=== PATIENT | male | born 1950 | race Caucasian/White ===

== ENCOUNTER 2023-06-18 07:02 | Outpatient (CLI) | payer OTHER, SELFPAY ==
--- NOTE | 2023-06-18 07:15 | MR_ITS ---
[facility] [address] [facility] [address] [address] [address] Phone:?[phone] Fax:?[phone] Referring Physician Information: Awais Murillo M.D. [id number] [facility] [address] Phone:?[phone] Fax:?[phone] Patient:Chrissy Coleman D.O.B:?1950 Sex:?Male Phone:?[phone] [facility] MRN:?[id number] Exam Date:?06/18/2023 EXAM: MRI of the RIGHT SHOULDER, without contrast CLINICAL INFORMATION: Male, 72 years old, with right shoulder pain. INDICATION: Evaluate for rotator cuff tear. PRIOR SURGERY: None reported. PLAIN FILMS: Shoulder radiographs dated 06/12/2023. COMPARISONS: Right shoulder MRI dated 02/08/2020. TECHNICAL INFORMATION: Using a 1.5T MR scanner and a localizing surface coil: coronal obliques: PD, T2FS sagittal obliques: T2, PDFS axials: PD, PDFS SEDATION: None CONTRAST: None FINDINGS: Bones: Proximal humerus: No fracture or marrow edema/pathology. No humeral Hill-Sachs or reverse Hill-Sachs lesion/impaction or contusion. Glenoid: No fracture or marrow edema/pathology. No osseous Bankart lesion. Rotator cuff and muscles/tendons: Supraspinatus: Full-width, full-thickness tear of supraspinatus, tendon retraction to the level the glenoid and grade 3 muscle atrophy. Infraspinatus: Full-width, full-thickness tear of infraspinatus, tendon retraction to level the glenoid and grade 4 muscle atrophy. Teres minor: No tendinopathy, tear or atrophy. Subscapularis: Marked tendinopathy of the superior distal subscapularis, with partial-thickness interstitial tearing at the superior leading edge of the tendon over an area measuring 1.5 x 1.3 cm and involving approximately two thirds of the tendon thickness (sagittal T2 series 8 image 12 and axial PD series 3 image 17). No tendon retraction muscle atrophy. Deltoid: No strain or atrophy. Coracoacromial arch: Acromion morphology: The acromion has type II morphology. No discrete subacromial osseous spur or os acromiale. Acromiohumeral space: The acromiohumeral space is markedly narrowed. Coracohumeral space: The coracohumeral space is within normal limits. Acromioclavicular joint: Joint: Moderate-marked AC joint arthropathy with 5 mm of infraspinatus, which effaces the underlying supraspinatus. Ligaments: Coracoclavicular ligaments are intact. Bursae: Subacromial-subdeltoid: Moderate subacromial-subdeltoid bursal fluid, which reflects accumulation from the full-thickness rotator cuff tear. Subcoracoid: No convincing subcoracoid bursal thickening/bursitis. Biceps tendon: The long head of the biceps tendon is medially displaced at the lesser tuberosity. Marked tendinopathy and ill-defined intermediate grade partial tearing of the intra-articular biceps long head tendon (sagittal PD series 7 images 11-18). Glenohumeral joint: Effusion/cyst: Marked glenohumeral joint effusion. Articular cartilage: Humeral head: Mild generalized thinning of the humeral head articular cartilage, with mild inferomedial marginal osteophytosis. Glenoid: Mild thinning of the glenoid articular cartilage, mild/moderate posterior and mild anterior marginal osteophytosis. Loose bodies: No discrete intra-articular body within the joint. Labrum:?Circumferential degeneration and poorly defined fraying/tearing of the labrum. Inferior glenohumeral ligament/axillary pouch:?Intact. The axillary pouch is normal in thickness and signal. No evidence of adhesive capsulitis or capsular injury. IMPRESSION: 1. Full-width, full-thickness tears of supraspinatus & infraspinatus, with tendon retraction to level the glenoid and grade 3 or 4 muscle atrophy. These findings have progressed since the prior study dated 02/08/2020. 2. Findings in keeping with a biceps ginny injury: -Marked subscapularis tendinopathy with a 1.5 x 1.3 cm area of nytsibwwtjyd-qucn-sbezi interstitial tearing at the superior leading edge of the tendon. -Medial displacement of the biceps long head tendon at the lesser tuberosity. -Marked tendinopathy and ill-defined intermediate grade partial tearing of the intra-articular biceps long head tendon. -This has progressed since the prior study. 3. Mild osteoarthritis of the glenohumeral joint with a large joint effusion that extends into the subacromial-subdeltoid bursa. 4. Marked narrowing of the acromiohumeral space. Additionally, there is moderate-marked AC joint arthropathy with inferior aspect is that effaces the underlying supraspinatus. 5. Circumferential degeneration and poorly defined fraying/tearing of the labrum. BC Electronically signed on 06/18/2023 1:15:00 PM by Johnny Clayton M.D.
== END 2023-06-18 07:03 | disposition home or self-care (01) ==
LOC: MRI 07:04
PROVIDERS: PCP Family Medicine; Visit Provider Orthopaedic Surgery
DX: M25.511 Pain in right shoulder (principal); M75.101 Unspecified rotator cuff tear or rupture of right shoulder, not specified as traumatic; M19.011 Primary osteoarthritis, right shoulder; M25.411 Effusion, right shoulder
CPT/HCPCS: 73221

== ENCOUNTER 2023-07-03 09:04 | Outpatient (CLI) | payer MEDICARE, SELFPAY ==
--- NOTE | 2023-07-03 09:15 | MR_ITS ---
Patient: FANTASMA CHAN Facility:?[facility] Patient ID:?[id number] Site Patient ID:?[id number]. Site :?1950 Study:?MRI-Spine Cervical W/O-07/03/2023 10:20:13 AM Ordering Physician:BHAVIK MA Final Report: INDICATION: Radiculopathy. TECHNIQUE: Multiplanar multisequence noncontrast MR images of the cervical spine. COMPARISON: Cervical spine radiographs 06/26/2023. FINDINGS: Mild rightward cervical curvature. The cervical lordosis is maintained. Vertebral heights preserved. No acute fracture. No T1 hypointense lesions. The cervical cord is normal in signal intensity. C2-3: Shallow posterior disc osteophyte complex. Mild facet arthropathy. No spinal canal or neural foraminal narrowing. C3-4: Left eccentric disc osteophyte complex. Left greater than right uncinate spurring. Moderate left and mild right facet arthropathy. No spinal canal narrowing. Moderate bilateral neural foraminal narrowing. C4-5: Mild disc height loss. Shallow posterior disc osteophyte complex. Thickening ligamentum flavum. Bilateral uncinate spurring. Wddc-cy-jzbtyjsu facet arthropathy. Mild spinal canal narrowing. Moderate bilateral neural foraminal narrowing. C5-6: Advanced disc height loss. Shallow posterior disc osteophyte complex. Bilateral uncinate spurring, greater on the right. Hhdp-ji-atkbznvv facet arthropathy. Thickening ligamentum flavum. Mild spinal canal narrowing. Moderately severe right and rqvf-ik-xjmowivi left neural foraminal narrowing. C6-7: Moderately advanced disc height loss. Shallow posterior disc osteophyte complex. Bilateral uncinate spurring. Mild facet arthropathy. No spinal canal narrowing. Mild bilateral neural foraminal narrowing. C7-T1: Grade 1 anterolisthesis. Advanced bilateral facet arthropathy. No spinal canal narrowing. Severe left and mild right neural foraminal narrowing. IMPRESSION: 1. Multilevel cervical spondylosis without spinal canal stenosis. 2. At C3-4, moderate bilateral neural foraminal narrowing. 3. At C4-5, moderate bilateral neural foraminal narrowing 4. At C5-6, moderately severe right neural foraminal stenosis. 5. At C7-T1, severe left neural foraminal stenosis. Dictated by Bin Palacios MD @ 07/03/2023 8:44:00 PM Signed by:?Bin Palacios MD @07/03/2023 8:44:00 PM (Electronic Signature)
== END 2023-07-03 09:05 | disposition home or self-care (01) ==
PROVIDERS: PCP Family Medicine; Visit Provider Orthopaedic Surgery
DX: M54.12 Radiculopathy, cervical region (principal); M50.21 Other cervical disc displacement, high cervical region; M50.222 Other cervical disc displacement at C5-C6 level; M48.03 Spinal stenosis, cervicothoracic region
CPT/HCPCS: 72141

== ENCOUNTER 2023-12-20 13:55 | Emergency (ER) | payer MEDICARE, SELFPAY ==
[2023-12-20 13:58] VITALS: BP 127/65; PULSE 77; RESP 16; TEMP 37.1; O2SAT 95; BMI 37.3
--- NOTE | 2023-12-20 14:32 | ED.LOWEXIN ---
HPI - Extremity Injury (Lower) General Chief Complaint: Extremity Pain/Injury, Lower Stated Complaint: R leg cellulitis Time Seen by Provider: 12/20/23 14:09 History of Present Illness HPI Narrative: Patient is a 73-year-old gentleman who was diagnosed with mild cellulitis on the right leg yesterday at the clinic at [facility]. He was given a g Rocephin IM and started on Keflex. They did draw a nice line around his mid calf and patient is been compliant with his medication. Patient is concerned that he should be feeling better by now. He agrees that the area of induration has improved Um and is actually more distal to the area the circled. He has some chronic dermatitis and mild skin breakdown which has not changed. He has had no fevers no chills no night sweats no cough no shortness of breath. Patient has had complex skin infections in the past requiring IV vancomycin. 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 Again Um the does appear the patient is any worse infected he seems like he is somewhat better than yesterday when he was seen in clinic. Related Data Home Medications ?Medication ?Instructions ?Recorded ?Confirmed ascorbic acid (vitamin C) 1,000 mg 1 g PO QDAY 06/12/23 12/20/23 tablet (Vitamin C) aspirin 81 mg tablet,delayed 81 mg PO QDAY 06/12/23 12/20/23 release atorvastatin 40 mg tablet 40 mg PO QDAY 06/12/23 12/20/23 cholecalciferol (vitamin D3) 25 25 mcg PO QDAY 06/12/23 12/20/23 mcg (1,000 unit) capsule (Vitamin D3) clopidogrel 75 mg tablet (Plavix) 75 mg PO QDAY 06/12/23 12/20/23 lisinopril 2.5 mg tablet 2.5 mg PO QDAY 06/12/23 12/20/23 nitroglycerin 0.4 mg sublingual mg sublingual 06/12/23 07/08/23 tablet acetaminophen 650 mg/20.3 mL oral 650 mg PO Q6H PRN 07/08/23 07/08/23 solution aspirin 325 mg tablet 325 mg PO QDAY 07/08/23 07/08/23 atorvastatin 10 mg tablet mg PO .Bedtime 07/08/23 07/08/23 lisinopril 5 mg tablet mg PO DAILY 07/08/23 07/08/23 metoprolol tartrate 25 mg tablet mg PO .Bedtime 07/08/23 07/08/23 cephalexin 500 mg capsule 500 mg PO QID 12/20/23 12/20/23 Allergies Allergy/AdvReac Type Severity Reaction Status Date / Time No Known Drug Allergies Allergy Verified 12/20/23 14:03 Review of Systems Status of ROS: Reports: 10 or more systems reviewed and unremarkable except as noted in History and below [facility] Medical History Pain in hand (08/28/12) ?M79.643 - Pain in unspecified hand (ICD-10) Laceration of right thumb ?S61.011A - Laceration without foreign body of right thumb without damage to nail, initial encounter (ICD-10) Cellulitis ?L03.90 - Cellulitis, unspecified (ICD-10) Skin cancer ?C44.90 - Unspecified malignant neoplasm of skin, unspecified (ICD-10) CAD (coronary artery disease) ?I25.10 - Atherosclerotic heart disease of [place] coronary artery without angina pectoris (ICD-10) Sleep apnea ?G47.30 - Sleep apnea, unspecified (ICD-10) Cellulitis of right leg ?L03.115 - Cellulitis of right lower limb (ICD-10) Surgical History History of cataract extraction ?Z98.49 - Cataract extraction status, unspecified eye (ICD-10) History of heart artery stent ?Z95.5 - Presence of coronary angioplasty implant and graft (ICD-10) History of open heart surgery ?Z98.890 - Other specified postprocedural states (ICD-10) Family History Mother Diabetes Father Heart disease High blood pressure Social History Narrative: chewing tobacco user Smoking Status: Former smoker What tobacco products do you use: cigarettes Smoking quit date/years: >15 years ago Do you use any of these nicotine containing products: Smokeless Tobacco Second hand tobacco smoke exposure: No How often do you have a drink containing alcohol: never AUDIT-C Alcohol total score: 0 Non-prescribed substance use: denies use Are you now , , , , never or living with a partner: Social isolation score (0-1 are the most socially isolated patients): 1 Exam Narrative: Exam Narrative: EXAM GENERAL: Patient appears comfortable and well. Overweight. EYES: No scleral icterus. LYMPH: No supraclavicular or cervical lymphadenopathy. SKIN: Very mild redness noted distal to the circumferential marking on the right calf. He does have some superficial skin breakdown which he says is chronic. The redness is not terribly bright or swollen. Clearly there has been some recession of the erythema compared to previous exam as noted with the marking. EXT: No dependent lower extremity pedal edema. HEART: Regular rate and rhythm with no murmurs, rubs, or gallops. LUNGS: Clear to auscultation bilaterally with no crackles or wheezes. ABD: Soft, non tender, non distended. PSYCH: Good eye contact, speech is not pressured. Const: Vital Signs, click to edit/add: Vital Signs - 24 hr 12/20/23 13:58 Temperature 98.8 F Pulse Rate [Left P ulse Oximeter] 77 Respiratory Rate 16 Blood Pressure [Ri ght Upper Arm] 127/65 Pulse Oximetry 95 Oxygen Delivery Me thod Room Air Course Vital Signs Vital signs: Initial Vital Signs Temperature 98.8 F 12/20/23 13:58 Temperature Source Temporal Artery Scan 12/20/23 13:58 Pulse Rate 77 12/20/23 13:58 Respiratory Rate 16 12/20/23 13:58 Blood Pressure 127/65 12/20/23 13:58 Blood Pressure Mean 85 12/20/23 13:58 Blood Pressure Position Sitting 12/20/23 13:58 Pulse Oximetry 95 12/20/23 13:58 Oxygen Delivery Method Room Air 12/20/23 13:58 Vital Signs Temperature 98.8 F 12/20/23 13:58 Pulse Rate 77 12/20/23 13:58 Respiratory Rate 16 12/20/23 13:58 Blood Pressure 127/65 12/20/23 13:58 Pulse Oximetry 95 12/20/23 13:58 Oxygen Delivery Method Room Air 09/07/24 13:58 Temperature 98.8 F 12/20/23 13:58 Pulse Rate 77 12/20/23 13:58 Respiratory Rate 16 12/20/23 13:58 Blood Pressure 127/65 12/20/23 13:58 Pulse Oximetry 95 12/20/23 13:58 Oxygen Delivery Method Room Air 12/20/23 13:58 MDM - Extremity Injury (Lower) MDM Narrative Medical decision making narrative: I did have a nice discussion with patient is . On my exam patient is nontoxic appearing and has normal vital signs. His exam other than the obesity is normal with exception of mild erythema with a signs of chronic venous insufficiency the right lower extremity. On based on the line drawn in the office it does appear that the erythema is receding slightly. He has again no signs of toxicity and I do feel like he is improving. I do not believe he needs laboratory workup. He is asking about being hospitalized. I do not think that that is indicated here even though he has somewhat complex history as he does appear to be getting better and is not febrile. I did has a firm eyes given another g of IM Rocephin and asked him to continue his Keflex. Continue leg elevation and his other home medications will follow-up with his primary physician this coming week. Certainly if he develops any signs of systemic infection or worsening erythema would encourage him to come back. I also see no evidence of DVT as there is no thigh swelling or tenderness. Discharge Plan Discharge Clinical Impression: Cellulitis Patient Disposition: Home, Self-Care Condition: Stable Instructions: Cellulitis (ED) Additional Instructions: Continue current care Leg elevation while at rest Follow-up with your doctor next week as needed. Activity Level: No Restrictions Discharge Diet: Regular Prescriptions: No Action metoprolol tartrate 25 mg tablet PO .Bedtime lisinopril 5 mg tablet PO DAILY atorvastatin 10 mg tablet PO .Bedtime aspirin 325 mg tablet 325 mg PO QDAY acetaminophen 650 mg/20.3 mL solution 650 mg PO Q6H PRN nitroglycerin 0.4 mg tablet, sublingual sublingual ascorbic acid (vitamin C) [Vitamin C] 1,000 mg tablet 1 g PO QDAY aspirin 81 mg tablet,delayed release (DR/EC) 81 mg PO QDAY cholecalciferol (vitamin D3) [Vitamin D3] 25 mcg (1,000 unit) capsule 25 mcg PO QDAY lisinopril 2.5 mg tablet 2.5 mg PO QDAY atorvastatin 40 mg tablet 40 mg PO QDAY clopidogrel [Plavix] 75 mg tablet 75 mg PO QDAY cephalexin 500 mg capsule 500 mg PO QID Follow Up/Referrals: Erica Madison MD [Primary Care Provider] - Stand Alone Forms: [email or web address] Instructions
[2023-12-20] MEDS: LIDOCAINE 1% 5 ml (pf) 5 ML VIAL 2.1 ML IM (14:45)
[2023-12-20] MEDS: cefTRIAXone 1 GM VIAL IM (14:45)
== END 2023-12-20 14:50 | disposition home or self-care (01) ==
LOC: ED 14:40
PROVIDERS: Emergency Provider Internal Medicine; PCP Family Medicine
DX: L03.115 Cellulitis of right lower limb (principal)
CPT/HCPCS: 96372; 99283; J0696

== ENCOUNTER 2023-12-21 06:56 | Emergency (ER) | payer MEDICARE, SELFPAY ==
[2023-12-21 07:00] VITALS: BP 138/89; PULSE 74; RESP 20; TEMP 36.5; O2SAT 95; BMI 37.3
--- NOTE | 2023-12-21 07:36 | ED_ITS ---
HPI - General Adult General Chief complaint: Skin/Abscess/Foreign Body <Lisset Bernal MD - Last Filed: 12/23/23 23:57> Stated complaint: cellulitis R lower calf <Lisset Bernal MD - Last Filed: 12/23/23 23:57> Time Seen by Provider: 12/21/23 07:21 <Lisset Bernal MD - Last Filed: 12/23/23 23:57> Source: patient and family <Lisset Bernal MD - Last Filed: 12/23/23 23:57> Mode of arrival: ambulatory <Lisset Bernal MD - Last Filed: 12/23/23 23:57> Limitations: no limitations <Lisset Bernal MD - Last Filed: 12/23/23 23:57> History of Present Illness HPI narrative: 73-year-old male presents with his to the ED for evaluation of possibly worsening cellulitis. Last evaluated yesterday afternoon, about 18 hours ago. Patient awoke with symptoms 3 days ago, was evaluated in primary care clinic 2 days ago, started antibiotics less than 48 hours ago. Was given a shot of Rocephin in the clinic can and started on Keflex, reports good compliance. He came to the ED fairly 24 hours after starting antibiotics yesterday with concerned that things were not improving as he thought it should be. There are no fevers. Patient reports increased pain this morning and says that the cellulitis looks like it is worsening. It has spread less than a cm above the marked line in only 1 small area. Is having pain in the ankle and a little bit of tingling in the knee area. No sweats or chills, no shortness of breath or cardiac changes. No nausea or vomiting. No weakness. Slept poorly due to pain but did not try any treatment to help with the pain. Concern with worsening infection. No compression. No history of DVT. Does take Plavix and aspirin for cardiac issues. Has a history of ?circulation issues? in the leg but no prior history of stent. ED note from yesterday reviewed, no labs performed as the exam documents clinically very mild cellulitis. Past medical history notable for obesity, hypertension, coronary artery disease. Home meds are lisinopril, Plavix, aspirin and recent start of Keflex. As well as ongoing a tore the statin. Nonsmoker. No trauma or injury. ROS is notable for the extremities symptoms only, otherwise denies times 12 systems. <Lisset Bernal MD - Last Filed: 12/23/23 23:57> Related Data Home medications: Home Medications ?Medication ?Instructions ?Recorded ?Confirmed ascorbic acid (vitamin C) 1,000 mg 1 g PO QDAY 06/12/23 12/20/23 tablet (Vitamin C) aspirin 81 mg tablet,delayed 81 mg PO QDAY 06/12/23 12/20/23 release atorvastatin 40 mg tablet 40 mg PO QDAY 06/12/23 12/20/23 cholecalciferol (vitamin D3) 25 25 mcg PO QDAY 06/12/23 12/20/23 mcg (1,000 unit) capsule (Vitamin D3) clopidogrel 75 mg tablet (Plavix) 75 mg PO QDAY 06/12/23 12/20/23 lisinopril 2.5 mg tablet 2.5 mg PO QDAY 06/12/23 12/20/23 nitroglycerin 0.4 mg sublingual mg sublingual 06/12/23 07/08/23 tablet acetaminophen 650 mg/20.3 mL oral 650 mg PO Q6H PRN 07/08/23 07/08/23 solution aspirin 325 mg tablet 325 mg PO QDAY 07/08/23 07/08/23 atorvastatin 10 mg tablet mg PO .Bedtime 07/08/23 07/08/23 lisinopril 5 mg tablet mg PO DAILY 07/08/23 07/08/23 metoprolol tartrate 25 mg tablet mg PO .Bedtime 07/08/23 07/08/23 cephalexin 500 mg capsule 500 mg PO QID 12/20/23 12/20/23 Previous Rx's ?Medication ?Instructions ?Recorded doxycycline monohydrate 100 mg 100 mg PO BID #14 tabs 12/21/23 tablet <Lisset Bernal MD - Last Filed: 12/23/23 23:57> Allergies/adverse reactions: Allergies Allergy/AdvReac Type Severity Reaction Status Date / Time No Known Drug Allergies Allergy Verified 12/20/23 14:03 <Lisset Bernal MD - Last Filed: 12/23/23 23:57> [facility] Medical History: Medical History Pain in hand (08/28/12) ?M79.643 - Pain in unspecified hand (ICD-10) Laceration of right thumb ?S61.011A - Laceration without foreign body of right thumb without damage to nail, initial encounter (ICD-10) Cellulitis ?L03.90 - Cellulitis, unspecified (ICD-10) Skin cancer ?C44.90 - Unspecified malignant neoplasm of skin, unspecified (ICD-10) CAD (coronary artery disease) ?I25.10 - Atherosclerotic heart disease of [place] coronary artery without angina pectoris (ICD-10) Sleep apnea ?G47.30 - Sleep apnea, unspecified (ICD-10) Cellulitis of right leg ?L03.115 - Cellulitis of right lower limb (ICD-10) <Lisset Bernal MD - Last Filed: 12/23/23 23:57> Surgical History: Surgical History History of cataract extraction ?Z98.49 - Cataract extraction status, unspecified eye (ICD-10) History of heart artery stent ?Z95.5 - Presence of coronary angioplasty implant and graft (ICD-10) History of open heart surgery ?Z98.890 - Other specified postprocedural states (ICD-10) <Lisset Bernal MD - Last Filed: 12/23/23 23:57> Family History: Family History Mother Diabetes Father Heart disease High blood pressure <Lisset Bernal MD - Last Filed: 12/23/23 23:57> Social History: Social History Narrative: chewing tobacco user Smoking Status: Former smoker What tobacco products do you use: cigarettes Smoking quit date/years: >15 years ago Do you use any of these nicotine containing products: Smokeless Tobacco Second hand tobacco smoke exposure: No How often do you have a drink containing alcohol: never AUDIT-C Alcohol total score: 0 Non-prescribed substance use: denies use Are you now , , , , never or living with a partner: Social isolation score (0-1 are the most socially isolated patients): 1 service: Yes <Lisset Bernal MD - Last Filed: 12/23/23 23:57> Exam Const: Vital Signs, click to edit/add: Vital Signs - 24 hr 12/21/23 07:00 12/21/23 09:00 Temperature 97.7 F 97.6 F Pulse Rate [Pulse Oximeter] 74 64 Respiratory Rate 20 18 Blood Pressure [Ri ght Upper Arm] 138/89 138/89 Pulse Oximetry 95 97 Oxygen Delivery Me thod Room Air Room Air <Lisset Bernal MD - Last Filed: 12/23/23 23:57> Vital Signs, click to edit/add: Vital Signs - 24 hr 12/21/23 07:00 12/21/23 09:00 Temperature 97.7 F 97.6 F Pulse Rate [Pulse Oximeter] 74 64 Respiratory Rate 20 18 Blood Pressure [Ri ght Upper Arm] 138/89 138/89 Pulse Oximetry 95 97 Oxygen Delivery Me thod Room Air Room Air <Cristina Hartman MD - Last Filed: 12/21/23 10:09> Documenting provider has reviewed patient's vital signs: yes <Lisset Bernal MD - Last Filed: 12/23/23 23:57> Common normals: no apparent distress and alert <Lisset Bernal MD - Last Filed: 12/23/23 23:57> Other: Anxious, but I know him well at baseline and this is fairly typical for him. Answers questions appropriately, nontoxic. <Lisset Bernal MD - Last Filed: 12/23/23 23:57> HENMT: Common normals: normocephalic <Lisset Bernal MD - Last Filed: 12/23/23 23:57> Head and scalp: normocephalic <Lisset Bernal MD - Last Filed: 12/23/23 23:57> Face and sinus: normal facial exam <Lisset Bernal MD - Last Filed: 12/23/23 23:57> Mouth: oral and palatal mucosa normal <MD Nga Thibodeaux Last Filed: 12/23/23 23:57> Throat: posterior oropharynx normal <MD Nga Thibodeaux Last Filed: 12/23/23 23:57> Eye: Common normals: conjunctivae normal <MD Nga Thibodeaux Last Filed: 12/23/23 23:57> General eye: normal appearance of both eyes <MD Nga Thibodeaux Last Filed: 12/23/23 23:57> Conjunctiva: conjunctiva(e) normal <MD Nga Thibodeaux Last Filed: 12/23/23 23:57> Neck & C-Spine: General: normal visual inspection <MD Nga Thibodeaux Last Filed: 12/23/23 23:57> Resp: Common normals: normal respiratory effort, no use of accessory muscles and clear to auscultation bilaterally <MD Nga Thibodeaux Last Filed: 12/23/23 23:57> Effort & inspection: able to speak in complete sentences <MD Nga Thibodeaux Last Filed: 12/23/23 23:57> Auscultation: clear to auscultation bilaterally <MD Nga Thibodeaux Last Filed: 12/23/23 23:57> Cardio: Common normals: regular rate, regular rhythm, S1 normal heart sound, S2 normal heart sound and no murmurs <MD Nga Thibodeaux Last Filed: 12/23/23 23:57> Rate: regular rate <MD Nga Thibodeaux Last Filed: 12/23/23 23:57> Rhythm: regular rhythm <MD Nga Thibodeaux Last Filed: 12/23/23 23:57> Heart sounds: S1 normal and S2 normal <MD Nga Thibodeaux Last Filed: 12/23/23 23:57> GI: Common normals: Normal to inspection, nondistended, normoactive bowel sounds present and soft to palpation <MD Nga Thibodeaux Last Filed: 12/23/23 23:57> Palpation: soft <Lisset Bernal MD - Last Filed: 12/23/23 23:57> Extremity: Other: Right knee with well-healed total knee arthroplasty scar, no redness or effusion in the knee. The right ankle has no evidence of effusion. Mild tenderness to palpation with soft tissue swelling only. The marked area cellulitis appears 99% similar to current area of redness with the exception of a 1 cm creeping anteriorly only. This is not worse posteriorly or inferiorly. The entire foot is not affected, really just the [place] area. There are no palpable cords. Staining of the skin consistent with chronic venous stasis. I really do not appreciate a dramatic temperature change between the right and the left and the redness is very mild. He does have 2+ dorsalis pedis pulses and capillary refill is less than 2 seconds in the right foot. The left side has some mild chronic venous stasis skin changes but no ulcerations, redness, warmth or tenderness. <Lisset Bernal MD - Last Filed: 12/23/23 23:57> Neuro: Sensorium/orientation: alert <Lisset Bernal MD - Last Filed: 12/23/23 23:57> Speech: speech normal <Lisset Bernal MD - Last Filed: 12/23/23 23:57> Psych: Appearance: grossly normal <Lisset Bernal MD - Last Filed: 12/23/23 23:57> Activity/motor behavior: appropriate eye contact <Lisset Bernal MD - L ast Filed: 12/23/23 23:57> Skin: Narrative: Other than the mild redness to the right lower leg, no open sores, ulcerations or signs of trauma. <Lisset Bernal MD - Last Filed: 12/23/23 23:57> Course Course ED Course: 73-year-old male with a history of peripheral vascular disease and chronic venous stasis presenting with cellulitis of the right lower extremity that does sound fairly clinically stable but patient with increased pain and concern with worsening infection. He is afebrile and not exhibiting any signs of sepsis at this time. Would recommend that we get some more data with lab work. I have recommended a CBC, basic metabolic panel, CRP, procalcitonin and a uric acid level to see if there is another cause for his joint pain. I am going to hold off on any antibiotics at this time and I do not necessarily think that he needs hospitalization. I did try to reassure the family that cellulitis does take longer to improve then I think they were initially led to believe. I do still think this is falling in the realm of normal healing at this time. Will await lab studies and use this for plan of care. <Lisset Bernal MD - Last Filed: 12/23/23 23:57> Reevaluation(s) Time of Reevaluation #1: 10:04 <Cristina Hartman MD - Last Filed: 12/21/23 10:09> Reevaluation #1: This 73-year-old male is seen in follow-up with his labs. Unfortunately, there was an error on the machine in the C reactive protein did take some extra time to come back. We have reviewed that his labs certainly look reassuring. His inflammatory markers are normal. White count is a little low, do not have anything to compare with it at this time. He has felt chilled while being here, tells me had some chills overnight. We did recheck his temperature, there is no documented temperature. Did visualize is leg, the erythema is just slightly out of the area. There is 1 scab along his anterior lower medial tibia area that could have been source of infection. He is concerned as there is a knee replacement on this side. He has no involvement of the knee joint on examination at this time, no effusion. Erythema is not extending up to that level. He has no history of MRSA. He is quite concerned as is his . Given his concerns, his sense of feeling chilled, will offer him additional oral antibiotics. Have discussed with him that he does not meet criteria for ho spitalization at this time. We discussed that it is imperative that he elevate this leg. He also brought up that he has poor circulation in this lower extremity. Reviewed that I do understand that but that even makes this more important for him to elevate. He may have a prolonged course, may take him even longer for cellulitis to resolve. In his situation, I would anticipate it maybe 3-5 days for improvement but he needs to watch for worsening. <Cristina Powell MD - Last Filed: 12/21/23 10:09> Vital Signs Vital signs: Initial Vital Signs Temperature 97.7 F 12/21/23 07:00 Temperature Source Temporal Artery Scan 12/21/23 07:00 Pulse Rate 74 12/21/23 07:00 Pulse Rhythm Regular 12/21/23 07:00 Respiratory Rate 20 12/21/23 07:00 Blood Pressure 138/89 12/21/23 07:00 Blood Pressure Mean 105 12/21/23 07:00 Blood Pressure Position Sitting 12/21/23 07:00 Pulse Oximetry 95 12/21/23 07:00 Oxygen Delivery Method Room Air 12/21/23 07:00 Vital Signs Temperature 97.7 F 12/21/23 07:00 Pulse Rate 74 12/21/23 07:00 Respiratory Rate 20 12/21/23 07:00 Blood Pressure 138/89 12/21/23 07:00 Pulse Oximetry 95 12/21/23 07:00 Oxygen Delivery Method Room Air 12/21/23 07:00 Temperature 97.6 F 12/21/23 09:00 Pulse Rate 64 12/21/23 09:00 Respiratory Rate 18 12/21/23 09:00 Blood Pressure 138/89 12/21/23 09:00 Pulse Oximetry 97 12/21/23 09:00 Oxygen Delivery Method Room Air 12/21/23 09:00 <Lisset Bernal MD - Last Filed: 12/23/23 23:57> Initial Vital Signs Temperature 97.7 F 12/21/23 07:00 Temperature Source Temporal Artery Scan 12/21/23 07:00 Pulse Rate 74 12/21/23 07:00 Pulse Rhythm Regular 12/21/23 07:00 Respiratory Rate 20 12/21/23 07:00 Blood Pressure 138/89 12/21/23 07:00 Blood Pressure Mean 105 12/21/23 07:00 Blood Pressure Position Sitting 12/21/23 07:00 Pulse Oximetry 95 12/21/23 07:00 Oxygen Delivery Method Room Air 12/21/23 07:00 Vital Signs Temperature 97.7 F 12/21/23 07:00 Pulse Rate 74 12/21/23 07:00 Respiratory Rate 20 12/21/23 07:00 Blood Pressure 138/89 12/21/23 07:00 Pulse Oximetry 95 12/21/23 07:00 Oxygen Delivery Method Room Air 12/21/23 07:00 Temperature 97.6 F 12/21/23 09:00 Pulse Rate 64 12/21/23 09:00 Respiratory Rate 18 12/21/23 09:00 Blood Pressure 138/89 12/21/23 09:00 Pulse Oximetry 97 12/21/23 09:00 Oxygen Delivery Method Room Air 12/21/23 09:00 <Cristina Hartman MD - Last Filed: 12/21/23 10:09> Medical Decision Making Lab Data Lab results reviewed: Yes I reviewed the patient's lab results <Cristina Hartman MD - Last Filed: 12/21/23 10:09> Labs: Lab Results 12/21/23 12/21/23 Range/Units 07:58 07:58 WBC 3.72 L (4.50-11.00) K/uL RBC 4.58 (4.30-5.90) m/uL Hgb 14.8 (13.5-17.5) gm/dL Hct 44.9 (37.0-53.0) % MCV 98 (80-100) fL MCH 32 (26-34) pg MCHC 33 (32-36) gm/dL RDW Coeff of Mil 13.1 (11.5-15.5) % Plt Count 129 L (140-440) K/uL Neut % (Auto) 63.8 (42.0-72.0) % Lymph % (Auto) 20.4 (20-44) % [place] % (Auto) 13.4 H (0.0-11.0) % Eos % (Auto) 1.9 (0.0-7.0) % Baso % (Auto) 0.5 (0.0-3.0) % Neut # (Auto) 2.40 (1.7-7.0) K/uL Lymph # (Auto) 0.80 L (0.90-2.90) K/uL [place] # (Auto) 0.50 (0.00-0.90) K/UL Eos # (Auto) 0.10 (0.00-0.50) K/uL Baso # (Auto) 0.00 (0.00-0.30) K/uL Abs Immat Gran (auto) 0.00 (0.00-0.30) K/uL Imm/Tot Granulo (auto) 0.0 % Sodium 133 L (135-149) mmol/L Potassium 4.0 (3.6-5.1) mmol/L Chloride 104 (96-114) mmol/L Carbon Dioxide 20 (20-32) mmol/L Anion Gap 9 (7-15) mEq/L BUN 12 (7-30) mg/dL Creatinine 0.6 (0.5-1.5) mg/dL Estimated Creat Clear 70.06 Estimated GFR 101 ml/min Glucose 109 (60-115) mg/dL Uric Acid 4.2 (2.2-8.4) mg/dL Calcium 8.9 (8.4-10.6) mg/dL C-Reactive Protein Cancelled < 0.5 L Procalcitonin 0.09 (<0.50) ng/mL <Lisset Bernal MD - Last Filed: 12/23/23 23:57> Lab Results 12/21/23 12/21/23 Range/Units 07:58 07:58 WBC 3.72 L (4.50-11.00) K/uL RBC 4.58 (4.30-5.90) m/uL Hgb 14.8 (13.5-17.5) gm/dL Hct 44.9 (37.0-53.0) % MCV 98 (80-100) fL MCH 32 (26-34) pg MCHC 33 (32-36) gm/dL RDW Coeff of Mil 13.1 (11.5-15.5) % Plt Count 129 L (140-440) K/uL Neut % (Auto) 63.8 (42.0-72.0) % Lymph % (Auto) 20.4 (20-44) % [place] % (Auto) 13.4 H (0.0-11.0) % Eos % (Auto) 1.9 (0.0-7.0) % Baso % (Auto) 0.5 (0.0-3.0) % Neut # (Auto) 2.40 (1.7-7.0) K/uL Lymph # (Auto) 0.80 L (0.90-2.90) K/uL [place] # (Auto) 0.50 (0.00-0.90) K/UL Eos # (Auto) 0.10 (0.00-0.50) K/uL Baso # (Auto) 0.00 (0.00-0.30) K/uL Abs Immat Gran (auto) 0.00 (0.00-0.30) K/uL Imm/Tot Granulo (auto) 0.0 % Sodium 133 L (135-149) mmol/L Potassium 4.0 (3.6-5.1) mmol/L Chloride 104 (96-114) mmol/L Carbon Dioxide 20 (20-32) mmol/L Anion Gap 9 (7-15) mEq/L BUN 12 (7-30) mg/dL Creatinine 0.6 (0.5-1.5) mg/dL Estimated Creat Clear 70.06 Estimated GFR 101 ml/min Glucose 109 (60-115) mg/dL Uric Acid 4.2 (2.2-8.4) mg/dL Calcium 8.9 (8.4-10.6) mg/dL C-Reactive Protein Cancelled < 0.5 L Procalcitonin 0.09 (<0.50) ng/mL <Cristina Hartman MD - Last Filed: 12/21/23 10:09> Discharge Plan Discharge Clinical Impression: Cellulitis of right lower extremity <Lisset Bernal MD - Last Filed: 12/23/23 23:57> Patient Disposition: Home w/ Parent or Adult <Lisset Bernal MD - Last Filed: 12/23/23 23:57> Condition: Stable <Lisset Bernal MD - Last Filed: 12/23/23 23:57> Instructions: Cellulitis (ED) <Lisset Bernal MD - Last Filed: 12/23/23 23:57> Additional Instructions: I do wish that cellulitis to healed as quickly as some other infections. Unfortunately, it can take several days before we start to notice any clinical improvement. I would recommend a compression wrap to help with the fluid. This will help ultimately with the numbness and tingling that you are having. There are no signs that the infection is spreading into your joints at this time. The antibiotic that was chosen for you is an excellent one. Your blood work is very reassuring that the infection is healing. Often, the blood work will improve prior to clinical appearance or your perceived swelling and pain. This is a good sign. I would recommend that you continue the cephalexin at this time, try to keep the leg wrapped and elevated at rest. It is okay to use Tylenol 1000 mg every 6 hours and or ibuprofen 600 mg every 6 hours for pain. It is okay to use gentle sleep aids like melatonin and or Unisom at bedtime to help you sleep. It can take 2 weeks for things to clinically resolve. It can take up to 5 days before there is a visible change, especially for those with a history of vascular disease in the leg. You should come back to emergency department if you are running high fever, having signs of weakness, nausea, chills, significant increase in redness or swelling. Continue all of your other medications exactly as prescribed. I will add in an additional oral antibiotic to expand coverage for cellulitis. Start to this and take as prescribed, continue with the Keflex as well. <Lisset Bernal MD - Last Filed: 12/23/23 23:57> Activity Level: Activity as Tolerated <Lisset Bernal MD - Last Filed: 12/23/23 23:57> Activity as Tolerated <Cristina Hartman MD - Last Filed: 12/21/23 10:09> Discharge Diet: Regular <Lisset Bernal MD - Last Filed: 12/23/23 23:57> Regular <Cristina Hartman MD - Last Filed: 12/21/23 10:09> Prescriptions: New doxycycline monohydrate 100 mg tablet 100 mg PO BID Qty: 14 0RF No Action metoprolol tartrate 25 mg tablet PO .Bedtime lisinopril 5 mg tablet PO DAILY atorvastatin 10 mg tablet PO .Bedtime aspirin 325 mg tablet 325 mg PO QDAY acetaminophen 650 mg/20.3 mL solution 650 mg PO Q6H PRN nitroglycerin 0.4 mg tablet, sublingual sublingual ascorbic acid (vitamin C) [Vitamin C] 1,000 mg tablet 1 g PO QDAY aspirin 81 mg tablet,delayed release (DR/EC) 81 mg PO QDAY cholecalciferol (vitamin D3) [Vitamin D3] 25 mcg (1,000 unit) capsule 25 mcg PO QDAY lisinopril 2.5 mg tablet 2.5 mg PO QDAY atorvastatin 40 mg tablet 40 mg PO QDAY clopidogrel [Plavix] 75 mg tablet 75 mg PO QDAY cephalexin 500 mg capsule 500 mg PO QID <Lisset Bernal MD - Last Filed: 12/23/23 23:57> Follow Up/Referrals: Erica Madison MD [Primary Care Provider] - <Lisset Bernal MD - Last Filed: 12/23/23 23:57> Stand Alone Forms: MyHealth Info Instructions <Lisset Bernal MD - Last Filed: 12/23/23 23:57>
[2023-12-21 08:04] LABS: Basophils Percent Auto 0.5 % (0.0-3.0); Eosinophils Percent Auto 1.9 % (0.0-7.0); Hematocrit 44.9 % (37.0-53.0); Hemoglobin* 14.8 gm/dL (13.5-17.5); Lymphocytes Percent Auto 20.4 % (20-44); Mean Corpuscular HGB Conc 33 gm/dL (32-36); Mean Corpuscular Hemoglobin 32 pg (26-34); Mean Corpuscular Volume 98 fL (80-100); Monocytes Percent Auto 13.4 % (0.0-11.0); Neutrophils Percent Auto 63.8 % (42.0-72.0); Platelet Count* 129 K/uL (140-440); RDW Coefficient of Variation % 13.1 % (11.5-15.5); Red Blood Count 4.58 m/uL (4.30-5.90); White Blood Count* 3.72 K/uL (4.50-11.00)
[2023-12-21 08:05] LABS: Slide Review Reflex No
[2023-12-21 08:17] LABS: Chloride* 104 mmol/L (96-114); Sodium* 133 mmol/L (135-149)
[2023-12-21 08:20] LABS: Anion Gap 9 mEq/L (7-15); Blood Urea Nitrogen* 12 mg/dL (7-30); Carbon Dioxide* 20 mmol/L (20-32); Creatinine* 0.6 mg/dL (0.5-1.5); Est. Creatinine Clearance* 70.06; Estimated Glomerular Filt Rate 101 ml/min; Glucose* 109 mg/dL (60-115)
[2023-12-21 08:21] LABS: Calcium* 8.9 mg/dL (8.4-10.6); Uric Acid* 4.2 mg/dL (2.2-8.4)
[2023-12-21 08:38] LABS: Procalcitonin* 0.09 ng/mL (<0.50)
[2023-12-21 09:00] VITALS: BP 138/89; PULSE 64; RESP 18; TEMP 36.4; O2SAT 97
[2023-12-21 09:32] LABS: C Reactive Protein* < 0.5 mg/dL (0.5-1.0)
== END 2023-12-21 10:20 | disposition home or self-care (01) ==
LOC: ED 08:05
PROVIDERS: Emergency Provider Family Medicine; PCP Family Medicine
DX: L03.115 Cellulitis of right lower limb (principal)
CPT/HCPCS: 36415; 80048; 84145; 84550; 85025; 86140; 99283; 99284

== ENCOUNTER 2024-10-27 16:29 | Inpatient (IN) | payer MEDICARE, SELFPAY ==
--- OUTSIDE RECORDS SUMMARY | 2008-11-04 09:04 | XMS_ITS | Continuity of Care Document ---
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 [address], [address], [place], [place], [id number], [place]. tel:[phone] Family History Family Member Type Diagnosis Age At Onset No Information Payers Payer name Insurance type Covered republican ID Authoriza tion(s) No Information Social History Type Description Quantity Date Captured Comments Sex Male Smoking Status No Information Chief Complaint And Reason For Visit No Information Reason For Referral Reason For Referral No Information History Of Present Illness Encounter Date Complaint History Of Prese nt Illness No Information Functional Status Date Functional Assessmen t No Information Instructions Date Instruction Additional Infor mation No Information Assessments Type Assessment Date No Information Patient Care Teams Name Effective Dates (start - stop) Status Members No Information
--- OUTSIDE RECORDS SUMMARY | 2008-11-04 09:04 | XMS_ITS | Continuity of Care Document ---
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 [address], [address], [place], [place], [id number], [place]. tel:[phone] Family History Family Member Type Diagnosis Age At Onset No Information Payers Payer name Insurance type Covered libertarian ID Authoriza tion(s) No Information Social History [...]
[2024-10-27] VITALS (13 sets, daily range): BP systolic 94–145; BP diastolic 68–122; PULSE 70–122; RESP 13–28; TEMP 36–36.8; O2SAT 94–97; BMI 39.1; BMI 39.2; BMI 39.3
--- OUTSIDE RECORDS SUMMARY | 2024-10-27 16:31 | XMS_ITS | Clinical Summary ---
Author Organization [employer] [facility] Address [address] [place] [id number] Care Team Providers Care Bobbin Sorter Name Role Phone Erica Madison MD Primary Care Provide r Allergies No known active allergies Medications aspirin (ECOTRIN) 81 mg enteric coated tabletIndications: Status post total right knee replacement Take 1 tablet by mouth once daily with a meal. 90 tablet. 3 021 Active cholecalciferol (Vitamin D-3) 2,000 unit capsuleIndications :Coronary artery disease due to lipid rich plaque Take 1 Capsule (2,000 units) by mouth once daily. 90 Capsule 2 Active Additional Information Patient not taking.Reported on 09/20/2024 amoxicillin (AMOXIL) 500 mg capsuleIndications :History of tooth extraction, unspecified edentulism class Take 4 tablets or 2 gms 60 minutes prior to procedure 16 Capsule 3 Active nitroglycerin (NITROSTAT) 0.4 mg sublingual tabletIndications: Coronary atherosclerosis due to lipid rich plaque Place 1 Tablet (0.4 mg) under the tongue every 5 minutes if needed for Chest Pain. 25 Tablet 3 024 Active Graduated Compression StockingsIndicatio ns:Cellulitis and abscess of right lower extremity For personal use. Length: calf Strength: 16-20 mmHg Circumference in cm: , one pair 1 Packet 024 Active clopidogreL 75 mg tabletIndications: CAD in [place] artery TAKE 1 TABLET(75 MG) BY MOUTH EVERY MORNING 90 Tablet 3 025 Active atorvastatin 40 mg tabletIndications: S/P CABG x 1 TAKE 1 TABLET(40 MG) BY MOUTH DAILY 90 Tablet 1 025 Active lisinopriL 2.5 mg tabletIndications: Coronary atherosclerosis due to lipid rich plaque TAKE 1 TABLET(2.5 MG) BY MOUTH DAILY 90 Tablet 025 Active lisinopriL 2.5 mg tabletIndications: Coronary atherosclerosis due to lipid rich plaque TAKE 1 TABLET(2.5 MG) BY MOUTH DAILY 90 Tablet 025 2024 Discontinued Active Problems Problem Noted Date Diagnosed Date Skin cancer 09/19/2021 Overview (09/19/2021): 09/11/21: Nose; BCC - needs Mohs S/P mitral valve replacement 06/22/2020 S/P MVR (mitral valve replacement) 06/13/2020 Overview (06/13/2020): Mitral Valve-St. Ajay Epic Valve; Size-33mm; REF:[id number]; SN:[id number]; implanted on 06/13/[address] Delarosa. S/P CABG x 1 06/13/2020 Overview (06/13/2020): Saphenous vein graft to OM - Dr Delarosa Mitral valve insufficiency 05/11/2020 S/P knee surgery 05/14/2018 Primary osteoarthritis of left knee 01/08/2018 Adenomatous polyp of ascending colon 08/13/2016 Overview (08/13/2016): Colonoscopy 08/2016 multiple polyps repeat in 3 years Coronary atherosclerosis due to lipid rich plaqu e 11/30/2014 Positive blood culture 03/15/2014 Overview (12/29/2017): Cellulitis. Treated in [place], treated IV antibiotics and discharge next day Obesity 11/05/2012 Coronary artery disease- CABG and stent placemen t 03/24/2012 Sleep apnea 02/12/2010 Overview (02/12/2010): On CPAP at home Kidney stones 06/20/2009 Overview (06/20/2009): 03/22 and 1 time previouly MIREYA 04/05/2008 04/18/2008 Unspecified essential hypertension 05/29/2007 Hyperlipidemia 03/26/2007 Umbilical hernia Bilateral Inguinal hernia Postprocedural hypotension Resolved Problems Problem Noted Date Diagnosed Date Resolved Date Anticoagulation monitoring, INR range 2-3 06/23/2020 09/12/2020 Coronary artery disease due to lipid rich plaque 12/23/2014 12/23/2014 Cellulitis 03/04/2014 12/29/2017 Dyslipidemia 11/05/2012 12/29/2017 Chest pain 11/05/2012 12/29/2017 Abnormal liver function 03/07/200912/13 ENDOCARDITIS S/P AFTER LAST STENTING 12/24/2007 03/15/2014 Overview (02/13/2010): Not able to confirm with notes on file, patient states this has happened prior to stenting in 2005 Cor athrscl-uns vessel 03/26/200703/24 Overview (12/31/2007): CAD x 2 Saldaña --lad and SVG --PDA ON 09/18/04 S/P STENTING OF RCA PRIOR TO ANGIO -about 1995 Stenting x3- 12/20 Encounters Date Type Department Care Team Description 10/03/2024 Refill [facility] [address] [place] [address] Erica Madison MD Refill Request (Lisinopril) 09/20/2024 1:00 PM CDT Office Visit [facility] [address] [place] [address] Loli Lambert MD Follow Up (US 09/20/24 Lower extremities ) 09/20/2024 10:45 AM CDT Orders Only [facility] [address] [place] [address] 2 scans: (2-Ord) US ARTERIAL LOWER EXTREMITY W CHARLEY BILATERAL ([id number]) 09/20/2024 Travel 09/01/2024 Refill [facility] [address] [place] [address] Erica Madison MD Refill Request (Atorvastatin) from Last 3 Months Immunizations Immunization Administration Dates Next Due COVID-19 VACCINE SPIKEVAX (M ODERNA 50MCG/0.5ML) 12YO+ PFS 04/09/2024 COVID-19 vaccine (Moderna 10 0mcg/0.5mL) PF, MDV 07/20/2020,06/22/2020 COVID-19 vaccine (Pfizer-Bio NTech 30mcg/0.3mL) 12YO+ BIVALENT PF, MDV 02/15/2022 COVID-19 vaccine (Pfizer-Bio NTech 30mcg/0.3mL) PF, MDV 09/07/2021 Influenza, High-dose Inactivated 02/05/2016 Influenza, IIV3 (Age >=3 years) 01/30/2012 Influenza, IIV4 01/09/2018 Influenza, Inactivated AIIV4 (Age 65+ Years) Preserv Free 02/15/2022,01/25/2021,02/03/2020 Influenza, Inactivated IIV3 (Age 65+ Years) Preserv Free 03/18/2019 Pneumococcal Poly,23-Valent (Pneumovax) 01/26/20 21,11/12/2012 Pneumococcal conj 13-Valent (Prevnar 13) 018 Td, Preservative Free (age >= 7 Years) 1 Tdap 06/22/2009 Zoster (Zostavax-ZVL, live) 11/12/2012 Family History Medical History Relation Name Comments Heart Disease Father [place] age 40 Diabetes Mother Relation Name Status Comments Father Mother Social History Tobacco Use Types Packs/Day Years Used Date Smoking Tobacco: Former Cigarettes 1 30 0 04/14/1962 - 04/14/1992 Smokeless Tobacco: Current Chew Tobacco Cessation:Ready to Q uit: Not Asked; Counseling Given: Yes Comments:1 tin a week 03/15/24 Alcohol Use Standard Drinks/Week Comments No 0 (1 standard drink = 0.6 oz pur e alcohol) PHQ-2 Answer Date Recorded PHQ-2 TOTAL SCORE 0 06/10/2023 Social Connections Answer Date Recorded Do you often feel lonely or isolated from those around you? 0 10/28/2023 Financial Resource Strain Answer Date R ecorded Difficulty of Paying Living Expenses 3 10/28/2023 Difficulty of Paying Living Expenses Not on file 10/28/2023 Food Insecurity Answer Date Recorded Do you worry your food will run out before you are able to buy more? 1 10/28/2023 Transportation Needs Answer Date Record ed Does lack of transportation keep you from medica l appointments? 1 10/28/2023 Does lack of transportation keep you from work, meetings or getting things that you need? 1 10/28/2023 Housing Stability Answer Date Recorded What is your housing situation today? 1 10/28/2023 Utilities Answer Date Recorded Do you have trouble paying f or utilities (for example, heat, electricity, water, phone)? 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[employer] Not on file Not on file Not on file Obstetrics History Last Filed Vital Signs Vital Sign Reading Time Taken Comments Blood Pressure 123/75 09/20/2024 1:02 PM CDT Pulse 65 09/20/2024 1:02 PM CDT Temperature 36.7 C (98 F) 12/25/2021 8:41 AM CDT Respiratory Rate 16 01/05/2024 11:40 AM CDT Oxygen Saturation 95% 09/20/2024 1:02 PM CDT Inhaled Oxygen Concentration - - Weight 122.5 kg (270 lb) 09/20/2024 1:02 PM CDT Height 182.9 cm (6') 01/05/2024 11:40 AM CDT Body Mass Index 36.62 01/05/2024 11:40 AM CDT Plan of Treatment Upcoming Encounters Date Type Department Care Team (Late st Contact Info) Description 10/29/2024 1:30 PM CDT Office Visit [facility] [address] [facility] [place] [address] Erica Madison MD [address] [facility] [place] [address] 11/17/2024 2:00 PM CDT Nurse/Clinic Staff Only [facility] [address] [place] [address] 11/18/2024 7:00 AM CDT Office Visit [facility] [address] [place] [address] Erica Madison MD [address] [place] [address] 11/18/2024 7:30 AM CDT Nurse/Clinic Staff Only [facility] [address] [place] [address] 02/21/2025 2:30 PM 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 Office Visit [facility] [address] [place] [address] Phillip Michaels MD [address] [place] [address] Health Maintenance Due Date Last Done Comments Zoster (shingles) series for age 50+ (2 of 3) 01/07/2013 11/12/2012 Colonoscopy through age 75 08/09/201908/08, 08/08/2016, 03/09/2008 RSV vaccine for adults or (1 - 1-dose 75+ series) 11/04/2023 Depression screening for age 12+ 06/10/2024 06/10/2023, 05/17/2021, 05/09/2021, Additional history exists Medicare Wellness for age 65+ 06/10/2024 06/10/2023 COVID-19 vaccine series ( season) 2024 04/09/2024, 02/15/2022, 09/07/2021, Additional history exists Influenza Vaccine (#1) 2024 , 01/25/2021, 02/03/2020, Additional history exists BMI (ht and wt on same day) for age 18+ 01/04/2025 01/05/2024, 06/10/2023, 03/20/2021, Additional history exists Lipids for age 45-75 06/10/2028 06/10/2023, 02/15/2022, 10/19/2020, Additional history exists Tetanus booster 02/15/2031 02/15/2021, 06/22/2009 Hepatitis C screening for age 18-79 Completed 03/28/2009 Pneumococcal series for age 50+ Completed 01/25/2021, 06/13/2017, 11/12/2012 Hepatitis B series for 19+ Aged Out N o longer eligible based on patient's age to complete this topic Medical Devices Implanted Type Area Account Advisor Device Identifier Shelf Expiration Date Model / Serial / Lot Cmnt Bone 40g Simplex P Atb Mvtobramycin - [id number] Implanted:Qty: 1 on 01/08/2018 by Nicolás Addison MD at [facility] Left: Knee [employer] 06/12/2019 6197-9-01 0# / / [id number] Cmnt Bone 40g Simplex P Atb Mvtobramycin - [id number] Implanted:Qty: 2 on 01/08/2018 by Nicolás Addison MD at [facility] Left: Knee [employer] 06/12/2019 6197-9-01 0# / / [id number] Patella 87t14ts Triathlon Symmetric X3 - [id number] Implanted:Qty: 1 on 01/08/2018 by Nicolás Addison MD at [facility] Left: Knee [employer] 04/28/2021 5550-G-39 1# / / [id number] Baseplate Tib Sz8 Triathlon Pe - [id number] Implanted:Qty: 1 on 01/08/2018 by Nicolás Addison MD at [facility] Left: Knee [employer] 06/11/2018 5521-B-80 0# / / [id number] Insert Knee Sz8 11mm Triathloncondyle Stbz X3 - [id number] Implanted:Qty: 1 on 01/08/2018 by Nicolás Addison MD at [facility] Left: Knee [employer] 02/26/2020 5531-G-81 1# / / [id number] Insert Knee Sz8 13mm Triathloncruc Ret X3 - [id number] Implanted:Qty: 1 on 05/14/2018 by Nicolás Addison MD at [facility] Right: Knee [employer] 5530-G-81 3# / / [id number] Cmnt Bone 40g Simplex P Atb Mvtobramycin - [id number] Implanted:Qty: 2 on 05/14/2018 by Nicolás Addison MD at [facility] Right: Knee [employer] 11/12/2019 6197-9-01 0# / / [id number] Patella 61e69hp Triathlon Symmetric X3 - [id number] Implanted:Qty: 1 on 05/14/2018 by Nicolás Addison MD at [facility] Right: Knee [employer] 09/04/2022 5550-G-39 1# / / [id number] Baseplate Tib Sz8 Triathlon Pe - [id number] Implanted:Qty: 1 on 05/14/2018 by Nicolás Addison MD at [facility] Right: Knee [employer] 07/12/2019 5521-B-80 0# / / [id number] Fem Rt Sz7 Triathlon Cruc Ret Co Cr - [id number] Implanted:Qty: 1 on 05/14/2018 by Nicolás Addison MD at [facility] Right: Knee [employer] 06/30/2022 5510-F-70 2# / / [id number] Valve Mitral 33mm Epic Tissue - [id number] Implanted:Qty: 1 on 06/13/2020 by Gustavo Delarosa MD at [facility] Aortic Valve [facility] [employer] [facility] Cardiac Surgery 11/11/2021 [id number] / [id number] / Procedures Procedure Name Priority Date/Time Associated Diagnosis Comments US ARTERIAL LOWER EXTREMITY W CHARLEY BILATERAL Routine 09/20/2024 11:49 AM CDT PAD (peripheral artery disease) Cellulitis and abscess of right lower extremity LIPID PANEL W REFLEX MEASURED LDL Routine 06/10/2023 10:40 AM 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 Coronary atherosclerosis due to lipid rich plaque COLONOSCOPY 08/08/2016 7:58 AM CDT ANTI HCV Routine 03/28/2009 2:19 PM 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 Indication for study: Follow-up known PAD TECHNIQUE: Lower/upper extremity arteries were examined per exam protocol by duplex ultrasound, color-flow and spectral Doppler. Peak systolic velocities (PSV), Doppler waveform quality, velocity ratios and vessel size in cm, were documented at protocol specific sites. Physiologic data including segmental pressures, ankle/brachial index (CHARLEY), digit PPG recordings, laser Doppler flowmetry, transcutaneous oximetry, and digit temperatures were documented at sites per exam protocol and test requirements. IMPRESSION: 1. Resting ankle-brachial index is falsely elevated on the right at 1.36 and is normal on the left at 1.00. 2. Toe-brachial index is severely reduced on the right at 0.30 and toe-brachial index is moderately reduced on the left at 0.49. 3. Right SFA and popliteal arteries are occluded, the right mid SF is aneurysmal with diameters of 3.2 cm x 2.2 cm 4. Left SFA appears patent, however the mid portion is aneurysmal 2.3 cm x 2.1 cm and the flow distally is reduced in velocity with more delayed waveform which may indicate significant stenosis or occlusion not fully identified on this US. COMPARISON: Compared to prior study 03-15-2024, there is no significant change. FINDINGS: Right toe/brachial index indicates severe range. Left toe/brachial index indicates moderate range. + + + + RIGHT Velocity cm/s Phasicity + + + + GROUNDING ENGINEER PRX 59 multiphasic + + + + GROUNDING ENGINEER DST 60 multiphasic + + + + PFA 93 multiphasic + + + + SFA PRX 19 multiphasic + + + + SFA PRX MID 24 multiphasic + + + + SFA MID 0 occluded + + + + SFA DST 0 occluded + + + + JOSE RAMON PRX 0 occluded + + + + JOSE RAMON DST 0 occluded + + + + BOTTOM PAINTER DST 25 monophasic + + + + SAURABH DST 8 monophasic + + + + DPA 53 monophasic + + + + + + + + LEFT Velocity cm/s Phasicity + + + + GROUNDING ENGINEER PRX 73 multiphasic + + + + GROUNDING ENGINEER DST 70 multiphasic + + + + PFA 96 multiphasic + + + + SFA PRX 79 multiphasic + + + + SFA PRX MID 32 multiphasic + + + + SFA MID 23 multiphasic + + + + SFA DST 16 monophasic + + + + JOSE RAMON PRX 68 monophasic + + + + JOSE RAMON DST 153 monophasic + + + + BOTTOM PAINTER DST 41 monophasic + + + + SAURABH DST 0 occluded + + + + DPA 49 monophasic + + + + Criteria: Stenosis V. Ratio Mild <50% <2.0 Moderate 50-74% > or = 2.0 Severe 75-99% > or = 4.0 Occluded 100% no detectable flow Pressures +-----+ +--------+ +-----+ RIGHT (mmHg) LEFT (mmHg) +-----+ +--------+ +-----+ Index 118 Brachial 122 Index +-----+ +--------+ +-----+ 0.43 52 BOTTOM PAINTER 74 0.61 +-----+ +--------+ +-----+ 1.36 166 DPA 122 1.00 +-----+ +--------+ +-----+ 0.30 37 Digit 1 60 0.49 +-----+ +--------+ +-----+ Gutierrez Valadez MD. Electronically signed on 09/21/2024 7:54:12 AM This study was performed and interpreted by a service accredited by the Intersocietal Accreditation Commission (IAC/Vascular), [email or web address] Report generated by [employer]. Final Procedure Note Gutierrez Valadez MD - 09/21/2024 VASCULAR ULTRASOUND REPORT FANTASMA COLEMAN : 1950 Study Date: 09/20/2024 9:57:28 AM Age: 73 years Tech: BS Gender: M Referring MD: LOLI LAMBERT Site: [facility] Study performed: Lower extremity duplex US, resting CHARLEY, TBI,(bilateral). Indication for study: Follow-up known PAD TECHNIQUE: Lower/upper extremity arteries were examined per exam protocol by duplexultrasound, color-flow and spectral Doppler. Peak systolic velocities(PSV), Doppler waveform quality, velocity ratios and vessel size in cm,were documented at protocol specific sites. Physiologic data includingsegmental pressures, ankle/brachial index (CHARLEY), digit PPG recordings,laser Doppler flowmetry, transcutaneous oximetry, and digit temperatureswere documented at sites per exam protocol and test requirements. IMPRESSION: 1. Resting ankle-brachial index is falsely elevated on the right at 1.36and is normal on the left at 1.00. 2. Toe-brachial index is severely reduced on the right at 0.30 andtoe-brachial index is moderately reduced on the left at 0.49. 3. Right SFA and popliteal arteries are occluded, the right mid SF isaneurysmal with diameters of 3.2 cm x 2.2 cm 4. Left SFA appears patent, however the mid portion is aneurysmal 2.3 cmx 2.1 cm and the flow distally is reduced in velocity with more delayedwaveform which may indicate significant stenosis or occlusion not fullyidentified on this US. COMPARISON: Compared to prior study 03-15-2024, there is no significant change. FINDINGS: Right toe/brachial index indicates severe range. Left toe/brachial index indicates moderate range. + + + + RIGHT Velocity cm/s Phasicity + + + + GROUNDING ENGINEER PRX 59 multiphasic + + + + GROUNDING ENGINEER DST 60 multiphasic + + + + PFA 93 multiphasic + + + + SFA PRX 19 multiphasic + + + + SFA PRX MID 24 multiphasic + + + + SFA MID 0 occluded + + + + SFA DST 0 occluded + + + + JOSE RAMON PRX 0 occluded + + + + JOSE RAMON DST 0 occluded + + + + BOTTOM PAINTER DST 25 monophasic + + + + SAURABH DST 8 monophasic + + + + DPA 53 monophasic + + + + + + + + LEFT Velocity cm/s Phasicity + + + + GROUNDING ENGINEER PRX 73 multiphasic + + + + GROUNDING ENGINEER DST 70 multiphasic + + + + PFA 96 multiphasic + + + + SFA PRX 79 multiphasic + + + + SFA PRX MID 32 multiphasic + + + + SFA MID 23 multiphasic + + + + SFA DST 16 monophasic + + + + JOSE RAMON PRX 68 monophasic + + + + JOSE RAMON DST 153 monophasic + + + + BOTTOM PAINTER DST 41 monophasic + + + + SAURABH DST 0 occluded + + + + DPA 49 monophasic + + + + Criteria: Stenosis V. Ratio Mild <50% <2.0 Moderate 50-74% > or = 2.0 Severe 75-99% > or = 4.0 Occluded 100% no detectable flow Pressures +-----+ +--------+ +-----+ RIGHT (mmHg) LEFT (mmHg) +-----+ +--------+ +-----+ Index 118 Brachial 122 Index +-----+ +--------+ +-----+ 0.43 52 BOTTOM PAINTER 74 0.61 +-----+ +--------+ +-----+ 1.36 166 DPA 122 1.00 +-----+ +--------+ +-----+ 0.30 37 Digit 1 60 0.49 +-----+ +--------+ +-----+ Gutierrez Valadez MD. Electronically signed on 09/21/2024 7:54:12 AM This study was performed and interpreted by a service accredited by theIntersocietal Accreditation Commission (IAC/Vascular),[email or web address] Report generated by [employer]. 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) CHOLESTEROL,TOTAL 102 100 - 199 mg/dL 06/10/2023 7:14 PM [facility] Comment: Cholesterol, Total Reference Ranges Desirable <200 mg/dL Borderline 200-239 mg/dL High >=240 mg/dL TRIGLYCERIDES 145 <150 mg/dL 06/10/2023 7:14 PM [facility] HDL CHOLESTEROL 36(L) >40 mg/dL 7:14 PM [facility] NON-HDL CHOLESTEROL 66 <145 mg/dl 06/10/2023 7:14 PM 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 [facility] CHOL/HDL RATIO 2.83 <4.50 06/10/2023 7:14 PM 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 [facility] LDL CHOLESTEROL 37 <=130 mg/dL 06/10/2023 7:14 PM 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 [facility] VLDL CHOLESTEROL 29 <=30 mg/dL 06/10/2023 7:14 PM 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 [facility] PROVIDER ORDERED STATUS RANDOM 06/10/2023 7:14 PM 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 [facility] Blood BLOOD SPECIMEN / Unknown Venipuncture / Unknown 06/10/2023 10:40 AM 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 06/10/2023 10:43 AM 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 us Erica Madison MD CHEMISTRY Final Result [facility] [address] [place] [address], [place] * COLONOSCOPY (08/08/2016 7:58 AM CDT) 08/08/2016 7:58 AM CDT Narrative Transcriptions Ulices Thomas MD - 08/08/2016 9:36 AM CDT Patient Name: Fantasma Coleman Procedure Date: 08/08/2016 Gender: Male Date of : 1950 Admit Type: Outpatient Procedure: Colonoscopy Proceduralist: Ulices Thomas MD , Ambar Staples (Nurse) Indications/Pre-Op Diagnosis: Surveillance: Personal history ofadenomatous polyps on last colonoscopy > 5 years ago,Last colonoscopy: February 2008 Medications: Fentanyl 200 micrograms IV, Midazolam 4 mgIV Procedure Description: The patient had risks, benefits and alternatives explained to andgave informed consent. The patient had a stable cardiopulmonary status and judged an adequate candidate for conscious sedation. The [id number] was passed through the anus and advanced tothe cecum, identified by appendiceal orifice and ileocecal valve. The colonoscopy was performed without difficulty. The patient toleratedthe procedure well. The quality of the bowel preparation was good. The ileocecal valve, appendiceal orifice, and rectum were photographed. Complications: No immediate complications. Estimated Blood Loss & Specimen: Estimated blood loss: none. Specimen collected - Yes and sent to Laboratory Findings: The perianal and digital rectal examinations were normal. A 4 mm polyp was found in the transverse colon. The polyp wassessile. The polyp was removed with a cold snare. Resection and retrieval were complete. Four sessile polyps were found in the descending colon. The polypswere 4 to 5 mm in size. These polyps were removed with a hot snare.Resection and retrieval were complete. The exam was otherwise without abnormality on direct and retroflexion views. Impressions/Post-Op Diagnosis: - One 4 mm polyp in the transverse colon, removed with a cold snare. Resected and retrieved. - Four 4 to 5 mm polyps in the descending colon, removed with a hot snare. Resected and retrieved. - The examination was otherwise normal on direct and retroflexionviews. Recommendation: - Patient has a contact number available for emergencies. The signsand symptoms of potential delayed complications were discussed with the patient. Return to normal activities tomorrow. Written discharge instructions were provided to the patient. - Resume previous diet. - Continue present medications. - Await pathology results. - Repeat colonoscopy is recommended. The colonoscopy date will be determined after pathology results from today's exam become available for review. Moderate Sedation: Moderate (conscious) sedation was administered by the endoscopy nurse and supervised by the endoscopist. The following parameters were monitored: oxygen saturation, heart rate, respiratory rate, blood pressure, adequacy of pulmonary ventilation and reponse to care. Please refer to the patien'ts medical record flowsheets and nursing notes for moderate sedation details. Total physician intraservice time was 34 minutes. Ulices Thomas MD 08/08/2016 9:36:34 AM This report has been signed electronically. Note Initiated On: 08/08/2016 7:58 AM Procedure Code(s): --- Professional --- 11827, Colonoscopy, flexible; with removalof tumor(s), polyp(s), or other lesion(s) bysnare technique Diagnosis Code(s): --- Professional --- Z86.010, Personal history of colonicpolyps D12.3, Benign neoplasm of transverse colon (hepatic flexure or splenic flexure) D12.4, Benign neoplasm of descending colon CPT copyright 2016 [employer]. All rights reserved. The codes documented in this report are preliminary and upon barrel bridge assembler reviewmay be revised to meet current compliance requirements. Scope In: 8:56:16 AM Scope Withdrawal Time 0 hours 21 minutes 7 seconds Scope Out: 9:27:40 AM Ulices Thomas MD PROCEDURE ORD Final Res ult * ANTI HCV (03/28/2009 2:19 PM 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) ANTI HCV Non-reacti ve [facility] Blood specimen (specimen) BLOOD SPECIMEN / Unknown 03/28/2009 2:19 PM 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 03/28/2009 2:08 PM 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 Ulices Thomas MD SEND OUTS Final Res ult [facility] INTERNAL ZIP [id number] [address] from Last 3 Months or Most Recently Relevant to Health Maintenance Insurance MEDICARE PART A HB ONLY [employer] MEDICARE ADVANTAGE MR HU[employer]NA PPS Advance Directives * Full Code (Latest Code Status on File) Date Activated Date Inactivated Comments 06/13/2020 5:59 AM 06/20/2020 5:59 PM preop/intraop Question Answer Comments Code Status Discussion: Other (specify in commen ts): * Full Code Date Activated Date Inactivated Comments 05/15/2020 10:20 AM 05/15/2020 7:09 PM Question Answer Comments Code Status Discussion: Discussed * Full Code Date Activated Date Inactivated Comments 03/27/2020 11:31 AM 03/28/2020 2:23 AM Question Answer Comments Code Status Discussion: Not Discussed * Full Code Date Activated Date Inactivated Comments 05/14/2018 4:56 PM 05/16/2018 2:15 PM * Full Code Date Activated Date Inactivated Comments 05/14/2018 8:35 AM 05/14/2018 4:56 PM Care Teams Bobbin Sorter Relationship Specialty Start Date End Date Erica Madison MD [address] [place] [address] PCP - General 03/30/07
--- OUTSIDE RECORDS SUMMARY | 2024-10-27 16:31 | XMS_ITS | Clinical Summary ---
Author Organization [facility] Address [address] [facility] , [address] [place] [address] Phone Care Team Providers Care Research Programmer Name Role Phone [facility] Unavailable Unava ilable Conditions or Problems Problem Name Problem Code Onset Date Status Entry Date Provider Comment Standard Description Annotate Left ulnar neuropathy 209723441 (SNOMED CT) Active Shahid Weiner MD Ulnar neuropathy Left median neuropathy 109079630 (SNOMED CT) Active Shahid Weiner MD Median neuropathy Cervical radiculopath y, left 28262795 (SNOMED CT) Active Shahid Weiner MD Cervical radiculopathy LEFT OCCIPITAL NUMBNESS 782.0 (ICD-9-CM) Active Sonido Monaco MD Disturbance of skin sensation HEADACHE 47204091 (SNOMED CT) Active Sonido Monaco MD Headache OCCIPITAL NEURALGIA 34567130 (SNOMED CT) Active Sonido Monaco MD Cervico-occipi shannan neuralgia Medications Medication Instructions Start Date Stop Date Generic Name ND Provider GLUCOSAMINE HCL TABS 2,000 gm po qd GLUCOSAMINE HCL TABS 96000946130 Sonido Monaco MD FISH OIL OIL 2,400 mg po qd FISH OIL [id number] Sonido Monaco MD VITAMIN C 1000 MG TABS One po qd ASCORBIC ACID 61296698638 Sonido Monaco MD MULTIVITAMINS TAB One po qd MULTIPLE VITAMIN 49480205397 Sonido Monaco MD LIPITOR 10 MG TABS One po qd ATORVASTATIN CALCIUM 37342042889 Sonido Monaco MD TOPROL XL 100 MG [id number] One po qd METOPROLOL SUCCINATE 59123855909 Sonido Monaco MD ASPIRIN EC 81 MG TBEC One po qd ASPIRIN 09855039475 Sonido Monaco MD Medications Administered No information available. Allergies, Adverse Reactions, Alerts Observed no known allergies at Results Date Name Value Unit Range Flag Description Internal Other: Authorizatio n - OBS [email or web address] Yes Authoriza tion: Release of Information - Authorize [facility] - Payment and Healthcare Operations ROIAUTHOTHER Yes Authoriz ation: Release of Information - Authorize Others/Insurance - Payment and Healthcare Operations HIECONSENT Yes Consent To Release information to the Health Information Exchange (HIE) [email or web address] Yes Authorizat ion: Authorization for [facility] to leave messages, voicemail, send text messages, send emails [email or web address] Yes Authoriz ation: Release/Retrieval of Information to/from Healthcare Facilities, Pharmacy Benefit Payers and Providers [email or web address] Yes Authoriz ation: Notice of privacy practices AUTHBENEFIT Yes Authoriza tion: Assignment of Benefits and Payment Agreement Plan of Care No information available. Procedures Code Procedure Name Date Entry Date CPT-51613 Nerve Conduction 7-8 studies CPT-06451 EMG with NCS (5+ muscles) - 1 limb 06/18 Vital Signs No information available. Immunizations No information available. Advance Directives No information available.
--- OUTSIDE RECORDS SUMMARY | 2024-10-27 16:31 | XMS_ITS | Clinical Summary ---
Author Organization [facility] Address [address] [place] [address]. 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
--- NOTE | 2024-10-27 16:48 | ED.SOB ---
HPI - SOB/Dyspnea General Time Seen by Provider: 16:48 Date Seen: 10/27/24 Chief Complaint: Shortness of Breath/Dyspnea Stated Complaint: difficulty breathing Time Seen by Provider: 10/27/24 16:45 Source: patient and RN notes reviewed Mode of arrival: ambulatory Limitations: no limitations History of Present Illness HPI Narrative: This 73-year-old male is presenting to the ER ambulatory of his own accord accompanied by his with complaint shortness of breath and difficulty breathing. He believes his symptoms have been worsening over the last week. He states he can not even leaning forward, causes so much pressure on his abdomen and makes his breathing worse. He normally wears compressive stockings on his lower extremities but can not get them on now. He believes he is up maybe close to 20 lb on his scale. Shortness of breath is getting worse. He notes no sense chest pain or irregular heartbeat. He does not know of any prior history of atrial fibrillation. He does have a history of peripheral arterial disease and venous insufficiency. He also has had coronary artery disease with prior CABG and stent placement. He has had mitral valve replacement. He has underlying hypertension and hyperlipidemia. He is on aspirin and anti-platelet agent with Plavix. He denies any illness, no cough or cold symptoms. MD elicited complaint: shortness of breath Related Data Home Medications ?Medication ?Instructions ?Recorded ?Confirmed aspirin 81 mg tablet,delayed 81 mg PO QDAY 06/12/23 10/27/24 release atorvastatin 40 mg tablet 40 mg PO QDAY 06/12/23 12/20/23 cholecalciferol (vitamin D3) 25 25 mcg PO QDAY 06/12/23 10/27/24 mcg (1,000 unit) capsule (Vitamin D3) clopidogrel 75 mg tablet (Plavix) 75 mg PO QDAY 06/12/23 10/27/24 lisinopril 2.5 mg tablet 2.5 mg PO QDAY 06/12/23 10/27/24 nitroglycerin 0.4 mg sublingual mg sublingual 06/12/23 07/08/23 tablet acetaminophen 650 mg/20.3 mL oral 650 mg PO Q6H PRN 07/08/23 10/27/24 solution atorvastatin 10 mg tablet 40 mg PO .Bedtime 07/08/23 10/27/24 lisinopril 5 mg tablet mg PO DAILY 07/08/23 07/08/23 metoprolol tartrate 25 mg tablet mg PO .Bedtime 07/08/23 07/08/23 cephalexin 500 mg capsule 500 mg PO QID 12/20/23 12/20/23 Previous Rx's ?Medication ?Instructions ?Recorded doxycycline monohydrate 100 mg 100 mg PO BID #14 tabs 12/21/23 tablet Allergies Allergy/AdvReac Type Severity Reaction Status Date / Time No Known Drug Allergies Allergy Verified 10/27/24 16:40 Review of Systems Status of ROS: Reports: 6 or more systems reviewed and unremarkable except as noted in History and below [facility] Medical History Unspecified essential hypertension (05/29/07) ?I10 - Essential (primary) hypertension (ICD-10) Umbilical hernia ?K42.9 - Umbilical hernia without obstruction or gangrene (ICD-10) Primary osteoarthritis of left knee (01/08/18) ?M17.12 - Unilateral primary osteoarthritis, left knee (ICD-10) Occipital neuralgia (12/24/07) ?M54.81 - Occipital neuralgia (ICD-10) Obesity (11/05/12) ?E66.9 - Obesity, unspecified (ICD-10) Mitral valve insufficiency (05/11/20) ?I34.0 - Nonrheumatic mitral (valve) insufficiency (ICD-10) Kidney stones (06/20/09) ?N20.0 - Calculus of kidney (ICD-10) Hyperlipidemia (03/26/07) ?E78.5 - Hyperlipidemia, unspecified (ICD-10) Coronary atherosclerosis due to lipid rich plaque (11/30/14) ?I25.83 - Coronary atherosclerosis due to lipid rich plaque (ICD-10) Bilateral inguinal hernia ?K40.20 - Bilateral inguinal hernia, without obstruction or gangrene, not specified as recurrent (ICD-10) Adenomatous polyp of ascending colon (08/13/16) ?D12.2 - Benign neoplasm of ascending colon (ICD-10) Sleep apnea (02/12/10) ?G47.30 - Sleep apnea, unspecified (ICD-10) Skin cancer (09/19/21) ?C44.90 - Unspecified malignant neoplasm of skin, unspecified (ICD-10) Pain in hand (08/28/12) ?M79.643 - Pain in unspecified hand (ICD-10) Laceration of right thumb ?S61.011A - Laceration without foreign body of right thumb without damage to nail, initial encounter (ICD-10) Cellulitis ?L03.90 - Cellulitis, unspecified (ICD-10) Skin cancer ?C44.90 - Unspecified malignant neoplasm of skin, unspecified (ICD-10) CAD (coronary artery disease) ?I25.10 - Atherosclerotic heart disease of [place] coronary artery without angina pectoris (ICD-10) Sleep apnea ?G47.30 - Sleep apnea, unspecified (ICD-10) Cellulitis of right leg ?L03.115 - Cellulitis of right lower limb (ICD-10) Surgical History S/P mitral valve replacement (06/22/20) ?Z95.2 - Presence of prosthetic heart valve (ICD-10) S/P knee surgery (05/14/18) ?Z98.890 - Other specified postprocedural states (ICD-10) S/P CABG x 1 (06/13/20) ?Z95.1 - Presence of aortocoronary bypass graft (ICD-10) History of cataract extraction ?Z98.49 - Cataract extraction status, unspecified eye (ICD-10) History of heart artery stent ?Z95.5 - Presence of coronary angioplasty implant and graft (ICD-10) History of open heart surgery ?Z98.890 - Other specified postprocedural states (ICD-10) Family History Mother Diabetes Father Heart disease High blood pressure Social History Narrative: He lives with his . 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 Code status is DNR. He does not smoke. He does not drink alcohol. Does chew tobacco, 1-2 cans per week. Smoking Status: Former smoker What tobacco products do you use: cigarettes Smoking quit date/years: >15 years ago Do you use any of these nicotine containing products: Smokeless Tobacco Second hand tobacco smoke exposure: No How often do you have a drink containing alcohol: never AUDIT-C Alcohol total score: 0 Non-prescribed substance use: denies use Are you now , , , , never or living with a partner: Social isolation score (0-1 are the most socially isolated patients): 1 service: Yes Exam Const: Vital Signs, click to edit/add: Vital Signs - 24 hr 10/27/24 16:31 10/27/24 16:51 10/27/24 16:55 Temperature 96.8 F L Pulse Rate 97 Pulse Rate [Pulse Oximeter] 122 H Respiratory Rate 26 H 13 Blood Pressure 138/95 H Blood Pressure [Ri ght Upper Arm] 142/94 H Pulse Oximetry 95 95 96 Oxygen Delivery Me thod Room Air 10/27/24 17:18 10/27/24 17:54 10/27/24 18:02 Temperature Pulse Rate 90 70 105 H Pulse Rate [Pulse Oximeter] Respiratory Rate 18 24 23 Blood Pressure 100/77 107/68 106/89 Blood Pressure [Ri ght Upper Arm] Pulse Oximetry 94 94 94 Oxygen Delivery Me thod 10/27/24 18:18 10/27/24 18:32 Temperature Pulse Rate 100 102 H Pulse Rate [Pulse Oximeter] Respiratory Rate 28 H Blood Pressure 94/78 108/86 Blood Pressure [Ri ght Upper Arm] Pulse Oximetry 95 95 Oxygen Delivery Me thod This 73-year-old male is seen in exam room 8, he is alert, interactive, no apparent distress. He is able to speak in complete sentences. Sclera clear, face atraumatic. Neck is thick, cannot appreciate his jugular vein at this time. No adenopathy, no thyromegaly masses or nodules. He is able to sit up, there may be some fine crackles right base but elsewhere in the upper lungs and on the left side I do not hear any definite wheezing or crackles. Heart rate is fast, irregular, maybe here some murmur but difficult to assess as his heart rate is fast. Abdomen is obese but soft, no specific tenderness but do feel he may be somewhat distended. He has pitting edema of his lower extremities without any evidence of any secondary infection. Documenting provider has reviewed patient's vital signs: yes Course Course ED Course: His initial EKG looks to be atrial fibrillation with RVR, rate was 122. He did have PVCs. Cardiac monitoring is showing consistent rhythm of atrial fibrillation with RVR. Lab him on pulse oximetry. Need to look at his records further but will likely need rate control and suspect diuresis as he is likely in fluid overload. Will get full complement of labs, portable chest x-ray. Need to make sure his troponin is normal and that there is no concerning ischemic component. Have discussed with patient that atrial fibrillation is a risk for strokes. We also discussed the need for rate control. Will have the hospitalist discuss the anticoagulation, unclear if he will need to be stopped from his Plavix or what is going to be recommended there. It is likely that he should be able to stay here, will give the hospitalist a brief call shortly to let them know of the likelihood of admission for this patient. Reevaluation(s) Time of Reevaluation #1: 18:05 Reevaluation #1: Dr. Weiner was here to see a different patient, we did discuss Mr. Coleman. He went in to see the patient, did look in see that his pulse was in the 70s on the most recent update of his vitals. I went in and patient's systolic blood pressure is 106, pulse is in the 80s currently, monitor shows irregular wide complex rhythm with occasional PVCs, likely still AFib but currently rate controlled. Had ordered 5 mg IV metoprolol after discussion with Dr. Weiner but we will hold on this and nursing staff is aware to do so. Will still give him 20 mg IV Lasix. Consultations Consultation #1: Have reviewed patient with the hospitalist. Patient is on low-dose metoprolol despite having peripheral arterial disease. Will give him 5 mg IV metoprolol for rate control. He is not on any diuretic, will give him 20 mg IV Lasix as he definitely seems to have fluid overload clinically. Dr. Weiner will see him for probable admission. Time: 17:55 Vital Signs Vital signs: Initial Vital Signs Temperature 96.8 F L 10/27/24 16:31 Temperature Source Temporal Artery Scan 10/27/24 16:31 Pulse Rate 122 H 10/27/24 16:31 Respiratory Rate 26 H 10/27/24 16:31 Blood Pressure 142/94 H 10/27/24 16:31 Blood Pressure Mean 110 H 10/27/24 16:31 Blood Pressure Position Supine 10/27/24 16:31 Pulse Oximetry 95 10/27/24 16:31 Oxygen Delivery Method Room Air 10/27/24 16:31 Vital Signs Temperature 96.8 F L 10/27/24 16:31 Pulse Rate 122 H 10/27/24 16:31 Respiratory Rate 26 H 10/27/24 16:31 Blood Pressure 142/94 H 10/27/24 16:31 Pulse Oximetry 95 10/27/24 16:31 Oxygen Delivery Method Room Air 10/27/24 16:31 Temperature 96.8 F L 10/27/24 16:31 Pulse Rate 102 H 10/27/24 18:32 Respiratory Rate 28 H 10/27/24 18:18 Blood Pressure 108/86 10/27/24 18:32 Pulse Oximetry 95 10/27/24 18:32 Oxygen Delivery Method Room Air 10/27/24 16:31 Medications Administered Medications: Discontinued Medications Generic Name Dose Route Start Last Admin Trade Name Freq PRN Reason Stop Dose Admin Furosemide 20 mg 10/27/24 17:53 10/27/24 18:41 Furosemide 10 Mg/Ml Inj IVP 10/27/24 17:54 Not Given ONCE ONE Furosemide 40 mg 10/27/24 18:28 10/27/24 18:45 Furosemide 10 Mg/Ml Inj IVP 10/27/24 18:29 40 mg ONCE ONE Administration Metoprolol Tartrate 5 mg 10/27/24 17:54 10/27/24 18:09 Metoprolol Tartrate 1 Mg/Ml Inj IVP 10/27/24 17:55 Not Given ONCE ONE MDM - SOB/Dyspnea Lab Data Attestation: I reviewed the patient's lab results. Labs: Lab Results 10/27/24 Range/Units 16:52 WBC 6.32 (4.50-11.00) K/uL RBC 4.54 (4.30-5.90) m/uL Hgb 14.4 (13.5-17.5) gm/dL Hct 45.0 (37.0-53.0) % MCV 99 (80-100) fL MCH 32 (26-34) pg MCHC 32 (32-36) gm/dL RDW Coeff of Mil 14.0 (11.5-15.5) % Plt Count 172 (140-440) K/uL Neut % (Auto) 70.2 (42.0-72.0) % Lymph % (Auto) 20.1 (20-44) % [place] % (Auto) 8.1 (0.0-11.0) % Eos % (Auto) 1.1 (0.0-7.0) % Baso % (Auto) 0.3 (0.0-3.0) % Neut # (Auto) 4.44 (1.7-7.0) K/uL Lymph # (Auto) 1.27 (0.90-2.90) K/uL [place] # (Auto) 0.50 (0.00-0.90) K/UL Eos # (Auto) 0.07 (0.00-0.50) K/uL Baso # (Auto) 0.02 (0.00-0.30) K/uL Abs Immat Gran (auto) 0.01 (0.00-0.30) K/uL Imm/Tot Granulo (auto) 0.2 % INR 1.18 H (0.91-1.10) APTT 32 (23-33) Seconds VBG pH 7.354 (7.32-7.43) VBG pCO2 40 (40-50) mmHG VBG pO2 39.2 (25-47) mmHG VBG HCO3 22 (21-28) mmol/L Sodium 137 (135-149) mmol/L Potassium 4.4 (3.6-5.1) mmol/L Chloride 106 (96-114) mmol/L Carbon Dioxide 21 (20-32) mmol/L Anion Gap 10 (7-15) mEq/L BUN 17 (7-30) mg/dL Creatinine 0.8 (0.5-1.5) mg/dL Estimated Creat Clear 70.06 Estimated GFR 92 ml/min Glucose 124 H (60-115) mg/dL Lactate 2.4 H (0.5-1.9) mmol/L Calcium 9.3 (8.4-10.6) mg/dL Magnesium 2.3 (1.5-2.6) mg/dL Total Bilirubin 1.5 (0.1-1.5) mg/dL AST 59 H (12-35) U/L ALT 89 H (4-50) U/L Alkaline Phosphatase 104 (40-150) U/L Troponin I 0.05 H (0.01-0.04) ng/mL C-Reactive Protein < 0.5 L (0.5-1.0) mg/dL NT-Pro-B Natriuret Pep 6560 H (See Note) pg/mL Total Protein 7.3 (6.0-8.3) g/dL Albumin 4.4 (3.3-5.0) g/dL TSH 1.850 (0.270-4.200) uIU/mL Ethyl Alcohol < 0.01 (0.01-0.03) % Imaging Data Chest x-ray: Attestation: I have reviewed the pertinent imaging results. My impression: Appears to have low lung volumes or poor air entry, cardiomegaly and probable congestive heart failure. Radiologist's impression: Patient: FANTASMA COLEMAN Facility:?[facility] Patient ID:?[id number] Site Patient ID:?[id number]. Site :?[id number] Study:?XRay-Chest 1V-10/27/2024 5:09:52 PM Ordering Physician:Rosmery Evans Final Report: INDICATION: Shortness of breath TECHNIQUE: Chest radiograph 1 view COMPARISON: None FINDINGS: The sensitivity and specificity of the exam are severely limited by the patient`s body habitus. Mediastinum: Previous median sternotomy and coronary artery bypass grafting (CABG) noted. Moderate cardiomegaly is noted. Lung: Small lung volumes are present with mild pulmonary vascular congestion. No sign of pleural effusion seen. No pneumothorax is identified. Bone and Soft tissue: Unremarkable for age. IMPRESSIONS: 1. Small lung volumes are present with mild pulmonary vascular congestion. 2. Moderate cardiomegaly is noted. Dictated by Rob Pollack MD @ 10/27/2024 5:18:48 PM Dictated by: Rob Pollack MD @ 10/27/2024 17:18:57 (Electronic Signature) ECG Data Attestation: I personally reviewed and interpreted this ECG as follows: (Atrial fibrillation with RVR, right bundle branch block, PVCs seen.) ECG interpretation date: 10/27/24 Prior ECG tracings: not available for review Discharge Plan Discharge Clinical Impression: Atrial fibrillation with rapid ventricular response Congestive heart failure Qualifiers: Heart failure type: unspecified Heart failure chronicity: unspecified Qualified Code(s): I50.9 - Heart failure, unspecified Patient Disposition: Admitted As Inpatient Procedures ABG Interpretation ABG Results: 10/27/24 16:52 VBG pH 7.354 VBG pCO2 40 VBG pO2 39.2 VBG HCO3 22
--- NOTE | 2024-10-27 16:52 | CRLHL7_ITS ---
For Patients: As a result of the Cures Act, medical imaging exams and procedure reports are released immediately into your electronic medical record. You may view this report before your referring provider. If you have questions, please contact your health care provider. INDICATION: Shortness of breath TECHNIQUE: Chest radiograph 1 view COMPARISON: None FINDINGS: The sensitivity and specificity of the exam are severely limited by the patient`s body habitus. Mediastinum: Previous median sternotomy and coronary artery bypass grafting (CABG) noted. Moderate cardiomegaly is noted. Lung: Small lung volumes are present with mild pulmonary vascular congestion. No sign of pleural effusion seen. No pneumothorax is identified. Bone and Soft tissue: Unremarkable for age. IMPRESSIONS: 1. Small lung volumes are present with mild pulmonary vascular congestion. 2. Moderate cardiomegaly is noted. Dictated by Rob Pollack MD @ 10/27/2024 5:18:48 PM Dictated by: Rob Pollack MD @ 10/27/2024 17:18:57 (Electronically Signed)
[2024-10-27 17:00] LABS: HCO3 VBG 22 mmol/L (21-28); Lactate* 2.4 mmol/L (0.5-1.9); PCO2 VBG 40 mmHG (40-50); PO2 VBG 39.2 mmHG (25-47); pH VBG 7.354 (7.32-7.43)
[2024-10-27 17:06] LABS: Hematocrit 45.0 % (37.0-53.0); Hemoglobin* 14.4 gm/dL (13.5-17.5); Immature Granulocytes Abs Auto 0.01 K/uL (0.00-0.30); Immature Granulocytes Pct Auto 0.2 %; Lymphocytes Absolute Auto 1.27 K/uL (0.90-2.90); Mean Corpuscular HGB Conc 32 gm/dL (32-36); Mean Corpuscular Hemoglobin 32 pg (26-34); Mean Corpuscular Volume 99 fL (80-100); RDW Coefficient of Variation % 14.0 % (11.5-15.5); Red Blood Count 4.54 m/uL (4.30-5.90); White Blood Count* 6.32 K/uL (4.50-11.00)
[2024-10-27 17:17] LABS: Chloride* 106 mmol/L (96-114)
--- OUTSIDE RECORDS SUMMARY | 2024-10-27 17:17 | XMS_ITS | Clinical Summary ---
Author Organization [facility] Address [address] [facility] , [address] [place] [address] Phone Care Team Providers Care Appointment Specialist Name Role Phone [facility] Unavailable Unava ilable Conditions or Problems Problem Name Problem Code Onset Date Status Entry Date Provider Comment Standard Description Annotate Left ulnar neuropathy 549099620 (SNOMED CT) Active Shahid Weiner MD Ulnar neuropathy Left median neuropathy 991610838 (SNOMED CT) Active Shahid Weiner MD Median neuropathy Cervical radiculopath y, left 75317682 (SNOMED CT) Active Shahid Weiner MD Cervical radiculopathy LEFT OCCIPITAL NUMBNESS 782.0 (ICD-9-CM) Active Sonido Monaco MD Disturbance of skin sensation HEADACHE 98466462 (SNOMED CT) Active Sonido Monaco MD Headache OCCIPITAL NEURALGIA 31696184 (SNOMED CT) Active Sonido Monaco MD Cervico-occipi shannan neuralgia Medications Medication Instructions Start Date Stop Date Generic Name ND Provider GLUCOSAMINE HCL TABS 2,000 gm po qd GLUCOSAMINE HCL TABS 43783219785 Sonido Monaco MD FISH OIL OIL 2,400 mg po qd FISH OIL 64776423659 Sonido Monaco MD VITAMIN C 1000 MG TABS One po qd ASCORBIC ACID 62381869740 Sonido Monaco MD MULTIVITAMINS TAB One po qd MULTIPLE VITAMIN 62820496143 Sonido Monaco MD LIPITOR 10 MG TABS One po qd ATORVASTATIN CALCIUM 79557348528 Sonido Monaco MD TOPROL XL 100 MG [id number] One po qd METOPROLOL SUCCINATE 91491002402 Sonido Monaco MD ASPIRIN EC 81 MG TBEC One po qd ASPIRIN 47455591474 Sonido Monaco MD Medications Administered No information [...] Procedures Code Procedure Name Date Entry Date CPT-55905 Nerve Conduction 7-8 studies CPT-00628 EMG with NCS (5+ muscles) - 1 limb 06/18 Vital Signs No information available. Immunizations No information available. Advance Directives No information available.
[2024-10-27 17:18] LABS: Albumin* 4.4 g/dL (3.3-5.0); Potassium* 4.4 mmol/L (3.6-5.1); Sodium* 137 mmol/L (135-149)
[2024-10-27 17:20] LABS: Blood Urea Nitrogen* 17 mg/dL (7-30); Creatinine* 0.8 mg/dL (0.5-1.5); Est. Creatinine Clearance* 70.06; Estimated Glomerular Filt Rate 92 ml/min
[2024-10-27 17:21] LABS: Alanine Aminotransferase* 89 U/L (4-50); Alkaline Phosphatase* 104 U/L (40-150); Anion Gap 10 mEq/L (7-15); Aspartate Amino Transferase* 59 U/L (12-35); Bilirubin Total* 1.5 mg/dL (0.1-1.5); Calcium* 9.3 mg/dL (8.4-10.6); Carbon Dioxide* 21 mmol/L (20-32); Glucose* 124 mg/dL (60-115); Total Protein* 7.3 g/dL (6.0-8.3)
[2024-10-27 17:22] LABS: Slide Review Reflex No
[2024-10-27 17:32] LABS: INR 1.18 (0.91-1.10); Prothrombin Time 15.8 Seconds
[2024-10-27 17:37] LABS: Ethanol* < 0.01 % (0.01-0.03); NT Pro B Type NatriureticPept* 6560 pg/mL (See Note)
[2024-10-27 18:25] LABS: TSH With Reflex to FT4* 1.850 uIU/mL (0.270-4.200)
[2024-10-27] MEDS: FUROSEMIDE 10 MG/ML inj 40 MG IVP (18:45)
--- NOTE | 2024-10-27 19:30 | PM.IMHP1 ---
Assessment and Plan Assessment and plan (1) Atrial fibrillation with rapid ventricular response: Problem comment: New onset atrial fibrillation probably in the last week causing new onset of exertional dyspnea. Appears now to be having heart failure exacerbation with significant weight gain and edema. Switch from aspirin and Plavix to Eliquis. Rate control. Status: Acute (2) Congestive heart failure: Problem comment: Heart failure exacerbation manifest as exertional dyspnea, weight gain and edema. Associated with AFib with RVR. Blood pressure is relatively low so will be cautious about instituting diuresis as well as other guideline directed therapy. Echo pending. Status: Acute (3) Sleep apnea: Problem comment: Follow through with outpatient sleep study on November 18 Status: Acute Plan 73-year-old male with known coronary disease and mitral valve disease presenting now with new AFib and new diagnosis of congestive heart failure exacerbation. Patient is going to need rate control, diuresis and institution of guideline directed medical therapy. Total Time Spent Total Time Spent: 85 mins Hospitalist- H&P: HPI History of Present Illness Date Seen: 10/27/24 Chief complaint: difficulty breathing Narrative: Prem Coleman is a 73 year old male with coronary artery disease status post bypass, mitral valve replacement, obesity, sleep apnea presents with about 5 day history of worsening dyspnea. He reports until about 5 days ago he was able to walk from his house to his shed, about 50 yd slowly without any problems. Now he gets dyspneic with just about any activity. He is not aware of palpitations or tachy arrhythmia. He has not had a fever. He reports some chest discomfort when he lays down at night on his left side but no exertional chest pain or chest pressure. He reports the does not get short of breath at night but for the last few nights he has been sleeping very poorly, awakening in the middle of the night and unable to go back to sleep. He has a longstanding history of obstructive sleep apnea but is no longer on treatment as he does not tolerate the CPAP. He is scheduled for a sleep study on November 18. He notes that he has had some increased edema and weight gain. His weight was 270 lb in clinic on September 17 and today is 290 lb. Previous heart history includes coronary artery bypass grafting X2 in and 2020, stent placement, mitral valve replacement surgery. He has peripheral vascular disease and is followed by vascular clinic at [facility] for this. He has an occluded SFA and popliteal artery on the right and an occluded SFA on the left TBI is 0.3 on the right and 0.49 on the left. He has been on aspirin and Plavix and atorvastatin for his vascular disease. Echocardiogram from June of 2023: Final Impressions: 1. Technically limited exam. 2. Moderately increased left ventricular size, moderately increased wall thickness, mildly reduced global systolic function, calculated EF of 49 %. 3. Echo contrast was administered to TDS due to lung interference and body habitus. 4. Right ventricular cavity size is not well visualized, global systolic RV function is not well visualized. 5. Moderately enlarged left atrium. 6. The aortic valve is sclerotic, no stenosis and trivial regurgitation. 7. The mitral valve is S/P #33mm Epic MVR; the MVR is well-seated and stable., trace mitral regurgitation. 8. The peak and mean transmitral gradients are 12.6 and 6.1 mmHg respectively (heart rate 71bpm). 9. Tricuspid valve is normal. 10. The ascending aorta is dilated with a maximal diameter of 3.8 cm. 11. The aortic sinus is dilated with a maximal diameter of 4.3 cm. 12. No pericardial effusion. Review of Systems Narrative: Other than his dyspnea patient reports generally doing well. [facility] Medical History Unspecified essential hypertension (05/29/07) ?I10 - Essential (primary) hypertension (ICD-10) Umbilical hernia ?K42.9 - Umbilical hernia without obstruction or gangrene (ICD-10) Primary osteoarthritis of left knee (01/08/18) ?M17.12 - Unilateral primary osteoarthritis, left knee (ICD-10) Occipital neuralgia (12/24/07) ?M54.81 - Occipital neuralgia (ICD-10) Obesity (11/05/12) ?E66.9 - Obesity, unspecified (ICD-10) Mitral valve insufficiency (05/11/20) ?I34.0 - Nonrheumatic mitral (valve) insufficiency (ICD-10) Kidney stones (06/20/09) ?N20.0 - Calculus of kidney (ICD-10) Hyperlipidemia (03/26/07) ?E78.5 - Hyperlipidemia, unspecified (ICD-10) Coronary atherosclerosis due to lipid rich plaque (11/30/14) ?I25.83 - Coronary atherosclerosis due to lipid rich plaque (ICD-10) Bilateral inguinal hernia ?K40.20 - Bilateral inguinal hernia, without obstruction or gangrene, not specified as recurrent (ICD-10) Adenomatous polyp of ascending colon (08/13/16) ?D12.2 - Benign neoplasm of ascending colon (ICD-10) Sleep apnea (02/12/10) ?G47.30 - Sleep apnea, unspecified (ICD-10) Skin cancer (09/19/21) ?C44.90 - Unspecified malignant neoplasm of skin, unspecified (ICD-10) Pain in hand (08/28/12) ?M79.643 - Pain in unspecified hand (ICD-10) Laceration of right thumb ?S61.011A - Laceration without foreign body of right thumb without damage to nail, initial encounter (ICD-10) Cellulitis ?L03.90 - Cellulitis, unspecified (ICD-10) Skin cancer ?C44.90 - Unspecified malignant neoplasm of skin, unspecified (ICD-10) CAD (coronary artery disease) ?I25.10 - Atherosclerotic heart disease of [place] coronary artery without angina pectoris (ICD-10) Sleep apnea ?G47.30 - Sleep apnea, unspecified (ICD-10) Cellulitis of right leg ?L03.115 - Cellulitis of right lower limb (ICD-10) Surgical History S/P mitral valve replacement (06/22/20) ?Z95.2 - Presence of prosthetic heart valve (ICD-10) S/P knee surgery (05/14/18) ?Z98.890 - Other specified postprocedural states (ICD-10) S/P CABG x 1 (06/13/20) ?Z95.1 - Presence of aortocoronary bypass graft (ICD-10) History of cataract extraction ?Z98.49 - Cataract extraction status, unspecified eye (ICD-10) History of heart artery stent ?Z95.5 - Presence of coronary angioplasty implant and graft (ICD-10) History of open heart surgery ?Z98.890 - Other specified postprocedural states (ICD-10) Family History Mother Diabetes Father Heart disease High blood pressure Social History (Updated 10/27/24 @ 19:53 by Rishabh Weiner MD) Narrative: He lives with his . 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 Code status is DNR. He does not smoke. He does not drink alcohol. Does chew tobacco, 1-2 cans per week. Smoking Status: Former smoker What tobacco products do you use: cigarettes Smoking quit date/years: >15 years ago Do you use any of these nicotine containing products: Smokeless Tobacco Second hand tobacco smoke exposure: No How often do you have a drink containing alcohol: never AUDIT-C Alcohol total score: 0 Non-prescribed substance use: denies use Are you now , , , , never or living with a partner: Social isolation score (0-1 are the most socially isolated patients): 1 service: Yes Meds Home Medications and Allergies Home Medications ?Medication ?Instructions ?Recorded ?Confirmed ?Type aspirin 81 mg tablet,delayed 81 mg PO QDAY 06/12/23 10/27/24 History release atorvastatin 40 mg tablet 40 mg PO QDAY 06/12/23 12/20/23 History cholecalciferol (vitamin D3) 25 25 mcg PO QDAY 06/12/23 10/27/24 History mcg (1,000 unit) capsule (Vitamin D3) clopidogrel 75 mg tablet (Plavix) 75 mg PO QDAY 06/12/23 10/27/24 History lisinopril 2.5 mg tablet 2.5 mg PO QDAY 06/12/23 10/27/24 History nitroglycerin 0.4 mg sublingual mg sublingual 06/12/23 07/08/23 History tablet acetaminophen 650 mg/20.3 mL oral 650 mg PO Q6H PRN 07/08/23 10/27/24 History solution atorvastatin 10 mg tablet 40 mg PO .Bedtime 07/08/23 10/27/24 History lisinopril 5 mg tablet mg PO DAILY 07/08/23 07/08/23 History metoprolol tartrate 25 mg tablet mg PO .Bedtime 07/08/23 07/08/23 History cephalexin 500 mg capsule 500 mg PO QID 12/20/23 12/20/23 History doxycycline monohydrate 100 mg 100 mg PO BID #14 tabs 12/21/23 Rx tablet Allergies Allergy/AdvReac Type Severity Reaction Status Date / Time No Known Drug Allergies Allergy Verified 10/27/24 16:40 Exam Narrative: Exam Narrative: He is alert and appears in no distress. He gives his own history. Oropharynx with small airway. Neck is supple without mass or adenopathy. No apparent jugular venous distension. Respirations with diminished breath sounds. Occasional basilar crackles. Cardiovascular: Very distant heart sounds. Irregular tachycardia. Abdomen: Bowel sounds active. Abdomen is soft without tenderness. Extremities with 2-3+ edema bilaterally. Feet are warm to touch with good capillary refill with very weak pedal pulses. Const: Vital Signs, click to edit/add: Vital Signs - 24 hr 10/27/24 16:31 10/27/24 16:51 10/27/24 16:55 Temperature 96.8 F L Pulse Rate 97 Pulse Rate [Pulse Oximeter] 122 H Respiratory Rate 26 H 13 Blood Pressure 138/95 H Blood Pressure [Ri ght Upper Arm] 142/94 H Pulse Oximetry 95 95 96 Oxygen Delivery Me thod Room Air 10/27/24 17:18 10/27/24 17:54 10/27/24 18:02 Temperature Pulse Rate 90 70 105 H Pulse Rate [Pulse Oximeter] Respiratory Rate 18 24 23 Blood Pressure 100/77 107/68 106/89 Blood Pressure [Ri ght Upper Arm] Pulse Oximetry 94 94 94 Oxygen Delivery Me thod 10/27/24 18:18 10/27/24 18:32 Temperature Pulse Rate 100 102 H Pulse Rate [Pulse Oximeter] Respiratory Rate 28 H Blood Pressure 94/78 108/86 Blood Pressure [Ri ght Upper Arm] Pulse Oximetry 95 95 Oxygen Delivery Me thod Documenting provider has reviewed patient's vital signs: yes Hospitalist - H&P: Result Labs Labs: Short CBC 10/27/24 Range/Units 16:52 WBC 6.32 (4.50-11.00) K/uL Hgb 14.4 (13.5-17.5) gm/dL Hct 45.0 (37.0-53.0) % Plt Count 172 (140-440) K/uL BMP 10/27/24 16:52 Sodium 137 Potassium 4.4 Chloride 106 Carbon Dioxide 21 BUN 17 Creatinine 0.8 Glucose 124 H Calcium 9.3 Cardiac Enzymes 10/27/24 Range/Units 16:52 Troponin I 0.05 H (0.01-0.04) ng/mL Liver Function 10/27/24 Range/Units 16:52 Total Bilirubin 1.5 (0.1-1.5) mg/dL AST 59 H (12-35) U/L ALT 89 H (4-50) U/L Alkaline Phosphatase 104 (40-150) U/L Albumin 4.4 (3.3-5.0) g/dL ECG Attestation: I personally reviewed and interpreted this ECG as follows: (Atrial fibrillation with RVR and a rate of 112. Left axis deviation and right bundle branch block. No acute ST-T changes.) ECG interpretation date: 10/27/24 Imaging Chest x-ray: Radiologist's impression: INDICATION: Shortness of breath TECHNIQUE: Chest radiograph 1 view COMPARISON: None FINDINGS: The sensitivity and specificity of the exam are severely limited by the patient`s body habitus. Mediastinum: Previous median sternotomy and coronary artery bypass grafting (CABG) noted. Moderate cardiomegaly is noted. Lung: Small lung volumes are present with mild pulmonary vascular congestion. No sign of pleural effusion seen. No pneumothorax is identified. Bone and Soft tissue: Unremarkable for age. IMPRESSIONS: 1. Small lung volumes are present with mild pulmonary vascular congestion. 2. Moderate cardiomegaly is noted.
[2024-10-27] MEDS: ATORVASTATIN CALCIUM 10 MG TABLET 40 MG PO (20:42)
[2024-10-27] MEDS: METOPROLOL SUCCINATE (XL) 25 MG TAB PO (20:42)
[2024-10-27] MEDS: APIXABAN 5 MG TABLET PO (20:42)
[2024-10-27] MEDS: POTASSIUM BICARB 25 MEQ EFFERVESCENT TAB PO (20:43)
[2024-10-27] MEDS: SODIUM CHLORIDE 0.9 % (FLUSH) 10 ML SYRINGE 5 ML IVF (22:04)
--- NOTE | 2024-10-27 23:33 | PC.NURSE ---
[id number]: Pt. arrived from the ED. Pt. is AOx4 and pleasant. SOB. A. fib w/ RVR. Pt.'s bedside and supportive. Stby with cane. Pt. educated on new cardiac meds received during this shift. see EMAR. EKG performed, MD notified of results. Pt. requests supper and provided food from [employer]. Pt. stated no pain at arrival, at 2314, pt stated he had a dull pain upper L chest. MD notified, troponin ordered. Pt. states has a hx of sleep apnea but refuses CPAP. notifies RN he has a follow-up regarding CPAP next Friday. Pt. states he has a foot flop on his R foot when strength is assessed. His says this started from a previous heart surgery. Fan requested and provided, understanding of cost explained and signed by .
[2024-10-28] VITALS (10 sets, daily range): BP systolic 100–136; BP diastolic 69–98; PULSE 80–94; RESP 18–24; TEMP 36.2–36.6; O2SAT 93–95
--- NOTE | 2024-10-28 02:19 | W.PM.CROSSCO ---
Subjective Subjective Interval history: Nurse called me around 1 am on 10-28-2024 to report troponin of 0.06 up from 0.05 Patient's chart was reviewed and nurse gave me report too. Patient was admitted for afib with RVR and was started on oral metoprolol and Eliquis. HR staying in sinus rhythm now but had episode of chest pain close to midnight so troponin was repeated. In the mean time patient is hemodynamically stable with some breakthrough tachycardia with HR 130 but sinus tachy and not sustained. At the time nurse called me patient was having on off chest pain, EKG ordered earler was regular rhthym with LBBB. LBBB nurse tells me is not new. I asked nurse if I had to see patient at bedside and she said at this time he is resting and stable. Diagnosis: elevated troponin prob demand ischemia from episode of afib rvr - start oxygen via nc 2-4 lpm - may have morphine 1 mg iv x 1 for chest discomfort now - repeat troponin in 6 hrs - keep hr controlled may give metoprolol iv 2.5 mg q6h prn hr>120bpm if sbp>90 mmhg nurse was advised to call me if patient's condition changes
[2024-10-28 05:57] LABS: Lactate* 1.6 mmol/L (0.5-1.9)
[2024-10-28 06:17] LABS: Chloride* 106 mmol/L (96-114); Potassium* 4.3 mmol/L (3.6-5.1); Sodium* 136 mmol/L (135-149)
[2024-10-28 06:20] LABS: Anion Gap 8 mEq/L (7-15); Blood Urea Nitrogen* 17 mg/dL (7-30); Calcium* 8.9 mg/dL (8.4-10.6); Carbon Dioxide* 22 mmol/L (20-32); Creatinine* 0.8 mg/dL (0.5-1.5); Est. Creatinine Clearance* 70.06; Estimated Glomerular Filt Rate 92 ml/min; Glucose* 110 mg/dL (60-115)
--- NOTE | 2024-10-28 06:47 | PC.NURSE ---
[id number]: Pt pleasant, alert and oriented. Pt hypertensive and has episodes of tachycardia throughout shift. SOB at rest. Around 0000 pt stated to have leg cramps with intense pain; pt stated that these happen frequently. With 1a pt was brought to bathroom to utilize warm shower water and drank some pickle juice as this is a treatment used at home, pt stated improvement. Upon ambulation, pt was more SOB and HR was in the 130s. After getting back into bed pt stated chest pain that radiated across the entire chest region. MD (Go) notified of situation, see orders. After about 30 mins pt stated pain was alleviated. Tele reads NSR with 1st degree AV block, BBB, PVCs, and PACs. Exp. Rhonchi heard upon auscultation. Pt has intermittent cough with scant clear sputum. Pt on 2L o2 per MD (Go) to help alleviate respiratory labor and SOB. 3+ bilateral LE edema. Pt SBA tolerated it well. Pt stated improvement in symptoms into the morning hours. Pt in bed, appears to be resting, call light within reach.? ?
--- NOTE | 2024-10-28 07:36 | P.IMPN_ITS ---
Assessment and Plan Assessment and plan (1) Atrial fibrillation with rapid ventricular response: Problem comment: New onset atrial fibrillation probably in the last week causing new onset of exertional dyspnea. Appears now to be having heart failure exacerbation with significant weight gain and edema. Switch from aspirin and Plavix to Eliquis. Rate control. Continue metoprolol - currently good rate control in the 80s Continue Eliquis Status: Acute (2) Congestive heart failure: Problem comment: According to most recent echocardiogram, June 2023, EF 49%, falls in the category of diastolic heart failure with mid-range/mildly reduced ejection fraction Heart failure exacerbation manifest as exertional dyspnea, weight gain and edema. Associated with AFib with RVR. Blood pressure is relatively low so will be cautious about instituting diuresis as well as other guideline directed therapy. Echocardiogram ordered for today 10/28 BNP 6560 (I do not see a recent one otherwise in EMR) Weight 09/20/2024 122.5kg at outside facility, 131.2 kg on admission 10/27 Continue with IV diuresis Lasix 40 mg b.i.d., with parameters Strict I&Os, daily weights (down 1 kg thus far) Status: Acute (3) Elevated troponin: Problem comment: Likely demand ischemia in setting of afib RVR Trop 0.5->0.6->0.5, flat Ekg now showing sinus rhythm with PVCs/PACs No recurrence of chest pain Status: Acute (4) Sleep apnea: Problem comment: Follow through with outpatient sleep study on November 18 Status: Acute (5) Hyperlipidemia: Problem comment: Continue statin Status: Acute (6) Unspecified essential hypertension: Problem comment: Metoprolol has been added for AFib Hold lisinopril during IV diuresis Status: Acute (7) Coronary atherosclerosis due to lipid rich plaque: Problem comment: Per EMR, I, 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 He had a mitral valve repair along with a coronary bypass grafting with a vein graft to the obtuse marginal branch. He has a 33 mm Epic tissue valve in place. At the time of his most recent catheterization, his right coronary artery was felt to be too small for bypass. He subsequently has been on aspirin and Plavix Status: Acute Plan Awaiting echo. Continue IV diuresis. Possible discharge 1-2 days pending ongoing clinical improvement Total Time Spent Total Time Spent: Today I spent 75 minutes seeing the patient, reviewing Expanse and EPIC notes/diagnostics, discussing the care plan with our care time that includes social work, PT/OT, pharmacy, RT, intermediate and documenting my impressions and plan in the medical record. Subjective Date Seen: 10/28/24 Interval history: Patient is seen this morning lying reclined in bed. Respiratory therapy is present. Patient reports feeling much better than yesterday already. Denies headache or dizziness. Denies chest pain. Troponins overnight have flattened. Reports breathing has improved. Currently > 95% on room air. Chronic lower extremity edema, acutely worsening. Reports normally wearing compression stockings daily. 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 Awaiting echocardiogram. Exam Narrative: Exam Narrative: PHYSICAL EXAM General: Very pleasant, conversant, NAD HEENT: Normocephalic, atraumatic, sclera white, EOMI, oral mucosa moist Cardiovascular: Slightly irregular, +3 pitting edema bilaterally Pulmonary: Diminished throughout without rhonchi or expiratory wheezes. No dyspnea on room air Abdominal: Soft, minimally distended, NTTP Neurological: Alert, answering questions appropriately, cranial nerves intact, no focal findings Extremities: No gross joint deformity or swelling. AROMI. Neurovascularly intact Skin: Warm, dry. Const: Vital Signs, click to edit/add: Vital Signs - 24 hr 10/27/24 16:31 10/27/24 16:51 10/27/24 16:55 Temperature 96.8 F L Pulse Rate 97 Pulse Rate [Pulse Oximeter] 122 H Respiratory Rate 26 H 13 Blood Pressure 138/95 H Blood Pressure [Le ft Arm] Blood Pressure [Ri ght Arm] Blood Pressure [Ri ght Upper Arm] 142/94 H Pulse Oximetry 95 95 96 Oxygen Delivery Me thod Room Air 10/27/24 17:18 10/27/24 17:54 10/27/24 18:02 Temperature Pulse Rate 90 70 105 H Pulse Rate [Pulse Oximeter] Respiratory Rate 18 24 23 Blood Pressure 100/77 107/68 106/89 Blood Pressure [Le ft Arm] Blood Pressure [Ri ght Arm] Blood Pressure [Ri ght Upper Arm] Pulse Oximetry 94 94 94 Oxygen Delivery Me thod 10/27/24 18:18 10/27/24 18:32 10/27/24 19:34 Temperature 96.8 F L Pulse Rate 100 102 H Pulse Rate [Pulse Oximeter] 100 Respiratory Rate 28 H 20 Blood Pressure 94/78 108/86 Blood Pressure [Le ft Arm] 126/98 H Blood Pressure [Ri ght Arm] Blood Pressure [Ri ght Upper Arm] Pulse Oximetry 95 95 97 [facility] 10/27/24 19:34 10/27/24 23:00 10/27/24 23:00 Temperature Pulse Rate 87 Pulse Rate [Pulse Oximeter] Respiratory Rate 20 Blood Pressure Blood Pressure [Le ft Arm] Blood Pressure [Ri ght Arm] Blood Pressure [Ri ght Upper Arm] Pulse Oximetry 97 94 [facility] 10/27/24 23:00 10/27/24 23:26 10/27/24 23:27 Temperature 98.2 F Pulse Rate Pulse Rate [Pulse Oximeter] 94 94 Respiratory Rate 22 22 Blood Pressure Blood Pressure [Le ft Arm] Blood Pressure [Ri ght Arm] 145/101 H 142/122 H Blood Pressure [Ri ght Upper Arm] Pulse Oximetry 94 [facility] 10/27/24 23:49 10/27/24 23:49 10/28/24 01:00 Temperature Pulse Rate 87 Pulse Rate [Pulse Oximeter] Respiratory Rate Blood Pressure Blood Pressure [Le ft Arm] 121/103 H 138/100 H Blood Pressure [Ri ght Arm] Blood Pressure [Ri ght Upper Arm] Pulse Oximetry [facility] 10/28/24 02:40 Temperature 97.6 F Pulse Rate Pulse Rate [Pulse Oximeter] 87 Respiratory Rate 20 Blood Pressure Blood Pressure [Le ft Arm] Blood Pressure [Ri ght Arm] 136/98 H Blood Pressure [Ri ght Upper Arm] Pulse Oximetry 93 [facility] Labs Labs: Laboratory Results - last 24 hr 10/27/24 10/27/24 10/28/24 16:52 23:58 05:44 WBC 6.32 RBC 4.54 Hgb 14.4 Hct 45.0 MCV 99 MCH 32 MCHC 32 RDW Coeff of Mil 14.0 Plt Count 172 Neut % (Auto) 70.2 Lymph % (Auto) 20.1 Maries % (Auto) 8.1 Eos % (Auto) 1.1 Baso % (Auto) 0.3 Neut # (Auto) 4.44 Lymph # (Auto) 1.27 Maries # (Auto) 0.50 Eos # (Auto) 0.07 Baso # (Auto) 0.02 Abs Immat Gran (auto) 0.01 Imm/Tot Granulo (auto) 0.2 INR 1.18 H APTT 32 VBG pH 7.354 VBG pCO2 40 VBG pO2 39.2 VBG HCO3 22 Sodium 137 136 Potassium 4.4 4.3 Chloride 106 106 Carbon Dioxide 21 22 Anion Gap 10 8 BUN 17 17 Creatinine 0.8 0.8 Estimated Creat Clear 70.06 70.06 Estimated GFR 92 92 Glucose 124 H 110 Lactate 2.4 H 1.6 Calcium 9.3 8.9 Magnesium 2.3 Total Bilirubin 1.5 AST 59 H ALT 89 H Alkaline Phosphatase 104 Troponin I 0.05 H 0.06 H* 0.05 H C-Reactive Protein < 0.5 L NT-Pro-B Natriuret Pep 6560 H Total Protein 7.3 Albumin 4.4 TSH 1.850 Ethyl Alcohol < 0.01
[2024-10-28] MEDS: APIXABAN 5 MG TABLET PO ×2 (08:58→20:29)
[2024-10-28] MEDS: METOPROLOL SUCCINATE (XL) 25 MG TAB PO (08:58)
[2024-10-28] MEDS: SODIUM CHLORIDE 0.9 % (FLUSH) 10 ML SYRINGE 5 ML IVF ×2 (08:59→20:32)
[2024-10-28] MEDS: FUROSEMIDE 10 MG/ML inj 40 MG IVP (08:59)
--- NOTE | 2024-10-28 09:32 | NUTR.NU ---
RDN with nutrition screen for CHF diagnosis and heart healthy diet. Patient admitted with atrial fibrillation with RVR and CHF. Medical history includes, but not limited to coronary artery disease s/p bypass, sleep apnea, mitral valve disease, obesity, hypertension, and hyperlipidemia. Current weight 287lbs, height 6ft, and BMI 39.0 kg/m2. No recent weight history as weights available are stated at this time. Per MD note, patient presenting with increased edema and weight gain with weight of ~270lbs 09/17/24 and admission weight of 290lbs. Patient is currently receiving IV diuresis. Patient ate 50% of breakfast this morning and notes that he did not like the eggs. He reports a good appetite. Patient reports his does a majority of the cooking and grocery shopping, but he makes his own breakfast. Patient reports typically having 3 eggs and 3 pieces of toast with butter for breakfast, a bologna sandwich or something similar for lunch, and a pasta dish for supper. Patient also notes drinking lots of water and mentioned cutting back on coffee and regular pop recently. Patient accepting of nutrition education. Patient declined verbal education for designated caregiver and will pass along the handout provided. Nutrition education provided on a low sodium diet related to congestive heart failure. Verbal and written information provided. Recommend limiting sodium to 2,000 mg per day. Discussed foods recommended and to avoid. Also discussed heart healthy fats and limiting saturated fat intake. Handouts provides from [facility] on heart failure nutrition therapy, sodium content of foods, heart healthy label reading tips, sodium-free flavoring tips, and heart healthy cooking and shopping tips. Patient verbalized understanding. RDN's contact information was provides and patient was encouraged to call with questions.
--- NOTE | 2024-10-28 10:33 | RESP.RT ---
Patient on room air, SaO2 95%, breathing regular/easy, shallow, rate 18-20/minute. Patient receiving Lasix, BBS clear with end expiratory grunt, no rails or congestion noted. IS done with patient, to increase depth of breathes, patient made good slow breathes with #1500 and float in middle. Will continue to monitor.
--- NOTE | 2024-10-28 12:21 | REH.OT ---
OT: Consulted to assess if patient may benefit from use of edema wear with LE edema. Patient fit with size small edema wear to trial with use in daytime and remove at noc. Patient has compression stockings and martell for home use, which are too tight for him currently. LE edema should improve with diuresing in progress. Spoke with RN and patient would benefit from ambulating in [place] with staff assessing activity tolerance and safety.
[2024-10-28] MEDS: PERFLUTREN LIPID MICROSPHERES 2 ML VIAL IVP (15:42)
--- NOTE | 2024-10-28 18:25 | PC.NURSE ---
End of shift note [id number] Patient was very pleasant and cooperative with care through out shift. Alert and oriented x4, received education on medications and condition as well. Patient moves well independently to and from bed to bathroom. Lung sounds were clear bilaterally, stable vital signs. Patient states he get short of breath with exertion, respirations are shallow but regular. Cardiac sounds irregular, PVC's noted.Echocardiogram was performed bedside at 1530. Pitting edema 3+ present bilaterally ankles and feet, showing some improvement from beginning of shift. Patient was fitted for [place] and states that they are nice and comfortable to use. Bowel sounds normoactive on all quadrants. Patient states he is a picky eater and preferred to order dinner out brought in by his (Nestor anguiano). He ate 100% of his dinner. Patient has been consistently going to the bathroom and has lost 3.4 lbs during the course of the day. Patient requested to be weighted to check on weight loss. Last BP was 100/87 and his 2 pm dose of Furosemide was held as per Doctor's orders due to low systolic pressure. Patient has his pickle juice by bedside, which he uses to treat muscle cramps at night.
[2024-10-28] MEDS: ATORVASTATIN CALCIUM 10 MG TABLET 40 MG PO (20:28)
[2024-10-29 00:02] VITALS: BP 108/84; PULSE 80; RESP 20; TEMP 36.3; O2SAT 91
[2024-10-29 00:04] VITALS: RESP 20; O2SAT 91
[2024-10-29] MEDS: MELATONIN 3 MG TABLET PO (00:06)
[2024-10-29 03:17] VITALS: BP 127/84; PULSE 71; RESP 24; TEMP 36.2; O2SAT 92
--- NOTE | 2024-10-29 05:52 | PC.NURSE ---
End of shift note [id number]: Pt A&Ox 4 and able to make needs known. He is transferring/ambulating independently. Tele in place with first degree block, BBB, prolonged QT and PVCs noted- no new findings when compared to previous tele strips and EKGs. Pt continent of bladder. Pt has been denying pain when asked and has been denying N/V when asked. Pt reported difficulty sleeping last night despite taking PRN Melatonin when administered by this telegraphic typewriter operator. Pt reported nothing in particular kept him awake, just inability to sleep. VSS- pt has been afebrile and on RA throughout the shift. Call light within reach.
[2024-10-29 06:31] LABS: Chloride* 102 mmol/L (96-114)
[2024-10-29 06:32] LABS: Potassium* 4.1 mmol/L (3.6-5.1); Sodium* 135 mmol/L (135-149)
[2024-10-29 06:34] LABS: Blood Urea Nitrogen* 19 mg/dL (7-30); Creatinine* 0.8 mg/dL (0.5-1.5); Est. Creatinine Clearance* 70.06; Estimated Glomerular Filt Rate 92 ml/min
[2024-10-29 06:35] LABS: Anion Gap 9 mEq/L (7-15); Calcium* 9.5 mg/dL (8.4-10.6); Carbon Dioxide* 24 mmol/L (20-32); Glucose* 117 mg/dL (60-115)
[2024-10-29 07:00] VITALS: PULSE 94; RESP 18; O2SAT 94
[2024-10-29 07:30] VITALS: BP 137/85; PULSE 94; RESP 18; TEMP 36.4; O2SAT 94
--- NOTE | 2024-10-29 08:01 | PM.IMPN1 ---
Assessment and Plan Assessment and plan (1) Atrial fibrillation with rapid ventricular response: Problem comment: New onset atrial fibrillation probably in the last week causing new onset of exertional dyspnea. Appears now to be having heart failure exacerbation with significant weight gain and edema. Switch from aspirin and Plavix to Eliquis. Rate control. Continue metoprolol - currently good rate control in the 80s Continue Eliquis Status: Acute (2) Congestive heart failure: Problem comment: According to most recent echocardiogram, June 2023, EF 49%, falls in the category of diastolic heart failure with mid-range/mildly reduced ejection fraction Heart failure exacerbation manifest as exertional dyspnea, weight gain and edema. Associated with AFib with RVR. Blood pressure is relatively low so will be cautious about instituting diuresis as well as other guideline directed therapy. Echocardiogram ordered for today 10/28 BNP 6560 (I do not see a recent one otherwise in EMR) Weight 09/20/2024 122.5kg at outside facility, 131.2 kg on admission 10/27 Continue with IV diuresis Lasix 40 mg b.i.d., with parameters Strict I&Os, daily weights (down 1 kg thus far) Echo 10/28/2024 Final Impressions: 1. Technically limited exam. 2. Severely increased LV size, normal wall thickness, severely reduced global systolic function with an estimated EF of 10-20%. 3. S/p 33 mm bioprosthetic MVR. Mean gradient 4 mmHg at HR ~86 BPM. 4. Severely enlarged left atrium. 5. The inferior vena cava is dilated, respiratory size variation less than 50%. 6. Echo contrast was administered to enhance visualization of all left ventricular segments. Status: Acute (3) Elevated troponin: Problem comment: Likely demand ischemia in setting of afib RVR Trop 0.5->0.6->0.5, flat Ekg now showing sinus rhythm with PVCs/PACs No recurrence of chest pain Status: Acute (4) Sleep apnea: Problem comment: Follow through with outpatient sleep study on November 18 Status: Acute (5) Hyperlipidemia: Problem comment: Continue statin Status: Acute (6) Unspecified essential hypertension: Problem comment: Metoprolol has been added for AFib Hold lisinopril during IV diuresis Status: Acute (7) Coronary atherosclerosis due to lipid rich plaque: Problem comment: Per EMR, I, 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 He had a mitral valve repair along with a coronary bypass grafting with a vein graft to the obtuse marginal branch. He has a 33 mm Epic tissue valve in place. At the time of his most recent catheterization, his right coronary artery was felt to be too small for bypass. He subsequently has been on aspirin and Plavix Status: Acute Total Time Spent Total Time Spent: Today I spent 75 minutes seeing the patient, reviewing Expanse and EPIC notes/diagnostics, discussing the care plan with our care time that includes social work, PT/OT, pharmacy, RT, retirement and documenting my impressions and plan in the medical record. Exam Const: Vital Signs, click to edit/add: Vital Signs - 24 hr 10/28/24 10:30 10/28/24 10:30 10/28/24 11:00 Temperature 97.3 F L Pulse Rate Pulse Rate [Bilate ral Radial] 91 Pulse Rate [Pulse Oximeter] 94 Respiratory Rate 24 Blood Pressure [Le ft Arm] 105/75 Blood Pressure [Ri ght Arm] Pulse Oximetry 95 95 93 Oxygen Delivery Me od Room Air Room Air Room Air 10/28/24 14:50 10/28/24 15:00 10/28/24 15:00 Temperature 97.1 F L Pulse Rate Pulse Rate [Bilate ral Radial] Pulse Rate [Pulse Oximeter] 91 91 Respiratory Rate 22 22 Blood Pressure [Le ft Arm] 100/87 Blood Pressure [Ri ght Arm] Pulse Oximetry 95 95 [facility] 10/28/24 15:00 10/28/24 19:00 10/28/24 23:00 Temperature 97.8 F Pulse Rate 86 Pulse Rate [Bilate ral Radial] 91 Pulse Rate [Pulse Oximeter] 84 80 Respiratory Rate 22 20 Blood Pressure [Le ft Arm] 112/84 Blood Pressure [Ri ght Arm] Pulse Oximetry 95 [facility] 10/28/24 23:30 10/29/24 00:02 10/29/24 00:04 Temperature 97.3 F L Pulse Rate 89 Pulse Rate [Bilate ral Radial] Pulse Rate [Pulse Oximeter] 80 Respiratory Rate 20 20 Blood Pressure [Le ft Arm] 108/84 Blood Pressure [Ri ght Arm] Pulse Oximetry 91 91 [facility] Room Air 10/29/24 03:17 Temperature 97.2 F L Pulse Rate Pulse Rate [Bilate ral Radial] Pulse Rate [Pulse Oximeter] 71 Respiratory Rate 24 Blood Pressure [Le ft Arm] Blood Pressure [Ri ght Arm] 127/84 Pulse Oximetry 92 Oxygen Delivery Me thod Room Air Labs Labs: Laboratory Results - last 24 hr 10/29/24 05:42 Sodium 135 Potassium 4.1 Chloride 102 Carbon Dioxide 24 Anion Gap 9 BUN 19 Creatinine 0.8 Estimated Creat Clear 70.06 Estimated GFR 92 Glucose 117 H Calcium 9.5
[2024-10-29] MEDS: FUROSEMIDE 10 MG/ML inj 40 MG IVP (08:52)
[2024-10-29] MEDS: APIXABAN 5 MG TABLET PO (08:52)
[2024-10-29] MEDS: SODIUM CHLORIDE 0.9 % (FLUSH) 10 ML SYRINGE 5 ML IVF (08:52)
[2024-10-29] MEDS: METOPROLOL SUCCINATE (XL) 25 MG TAB PO (08:52)
[2024-10-29 11:00] VITALS: BP 99/69; PULSE 79; RESP 18; TEMP 36.8; O2SAT 95
--- NOTE | 2024-10-29 12:17 | P.DS_ITS ---
DS: Providers Provider Date Seen: 10/29/24 Date of admission: 10/27/24 20:08 Primary care physician: Erica Madison MD Admitting Clinician: Nancy Murillo MD Consults: 10/28/24 09:54 Consult to Occupational Therapy [CONS] Routine Comment: Reason(s) for OT Consult:: Evaluate and Treat Any Restrictions?:: No Restrictions Comment: Edema acute on chronic -[place]ear Attending Physician on discharge: Tali Baldwin [facility], PA-C [facility] Date of Discharge: 10/29/24 DS: Diagnosis Discharge Diagnosis (1) Atrial fibrillation with rapid ventricular response: Status: Acute Problem details: New onset atrial fibrillation probably in the last week causing new onset of exertional dyspnea. Appears now to be having heart failure exacerbation with significant weight gain and edema. Switch from aspirin and Plavix to Eliquis. Rate control. Continue metoprolol ER- currently good rate control in the 80s Continue Eliquis Prior to discharge, patient noted to convert into sinus rhythm with occasional PACs/PVCs. Rate has remained controlled on metoprolol XL. Ziopatch has been placed prior to discharge. He will continue on metoprolol succinate as well as Eliquis at discharge. His clopidogrel and aspirin have been held. Close outpatient follow-up with PCP on 11/02 as well as Cardiology at [facility] on 11/02. Return to ED if new or worsening symptoms. (2) Congestive heart failure: Status: Acute Problem details: According to most recent echocardiogram, June 2023, EF 49%, falls in the category of diastolic heart failure with mid-range/mildly reduced ejection fraction Heart failure exacerbation manifest as exertional dyspnea, weight gain and edema. Associated with AFib with RVR. Blood pressure is relatively low so will be cautious about instituting diuresis as well as other guideline directed therapy. Echocardiogram ordered for today 10/28 BNP 6560 (I do not see a recent one otherwise in EMR) Weight 09/20/2024 122.5kg at outside facility, 131.2 kg on admission 10/27 Continue with IV diuresis Lasix 40 mg b.i.d., with parameters Strict I&Os, daily weights (down 1 kg thus far) Echo 10/28/2024 Final Impressions: 1. Technically limited exam. 2. Severely increased LV size, normal wall thickness, severely reduced global systolic function with an estimated EF of 10-20%. 3. S/p 33 mm bioprosthetic MVR. Mean gradient 4 mmHg at HR ~86 BPM. 4. Severely enlarged left atrium. 5. The inferior vena cava is dilated, respiratory size variation less than 50%. 6. Echo contrast was administered to enhance visualization of all left ventricular segments. Repeat echocardiogram with significant worsening when compared to prior of July 2023. This in setting of recent atrial fibrillation with RVR and known significant cardiac history. Discussed with his PCP Dr. Madison. Will continue to manage short-term with Lasix 40 mg in the morning. Holding morning lisinopril for better blood pressure management while on diuretic. Has been advised to record daily weights. Avoid strenuous activity. Close outpatient follow-up with PCP as well as Cardiology both on 11/02/2024. (3) Elevated troponin: Status: Acute Problem details: Likely demand ischemia in setting of afib RVR Trop 0.5->0.6->0.5, flat Ekg now showing sinus rhythm with PVCs/PACs No recurrence of chest pain (4) Sleep apnea: Status: Acute Problem details: Follow through with outpatient sleep study on November 18. Discussed importance of this given his cardiac history. (5) Hyperlipidemia: Status: Acute Problem details: Continue statin (6) Unspecified essential hypertension: Status: Acute Problem details: Metoprolol has been added for AFib Hold lisinopril during IV diuresis Will continue to hold home lisinopril on discharge to allow for better blood pressure management as metoprolol XL and Lasix have been added at time of discharge. (7) Coronary atherosclerosis due to lipid rich plaque: Status: Acute Problem details: Per EMR, [facility], 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 He had a mitral valve repair along with a coronary bypass grafting with a vein graft to the obtuse marginal branch. He has a 33 mm Epic tissue valve in place. At the time of his most recent catheterization, his right coronary artery was felt to be too small for bypass. He subsequently has been on aspirin and Plavix DS: Summary Hospital Course Hospital Course: Course of care and details as noted above. Patient admitted with increasing dyspnea on exertion, new onset atrial fibrillation with RVR, heart failure exacerbation. IV diuresis initiated on admission, will continue with diuresis on discharge. Patient converted to sinus rhythm with PACs/PVCs prior to discharge, rate controlled. He is discharged on metoprolol succinate as well as Eliquis. Echocardiogram unfortunately with significant worsening and EF of 10%. Patient's oxygenation has remained in the mid 90s. HAMLIN improving, requiring no supplemental oxygen. Discussed short-term management with his PCP. He will have outpatient follow-up with his PCP as well as Cardiology both on 11/02/2024. Remainder of chronic medical comorbidities were monitored and managed with home medications. Status at Discharge Functional status at discharge: independent ambulation Overall status at discharge: patient is progressing back to baseline Time Spent with Patient Time attestation: Total time spent providing and/or coordinating discharge services: Time spent: Greater than 30 minutes Exam Narrative: Exam Narrative: PHYSICAL EXAM General: Pleasant, conversant, NAD Cardiovascular: IRRR. +2 pitting edema, improved from admission Pulmonary: No dyspnea on room air Neurological: Alert, answering questions appropriately Skin: Warm, dry. Const: Vital Signs, click to edit/add: Vital Signs - 24 hr 10/28/24 14:50 10/28/24 15:00 10/28/24 15:00 Temperature 97.1 F L Pulse Rate Pulse Rate [Bilate ral Radial] Pulse Rate [Pulse Oximeter] 91 91 Respiratory Rate 22 22 Blood Pressure [Le ft Arm] 100/87 Blood Pressure [Ri ght Arm] Pulse Oximetry 95 95 [facility] 10/28/24 15:00 10/28/24 19:00 10/28/24 23:00 Temperature 97.8 F Pulse Rate 86 Pulse Rate [Bilate ral Radial] 91 Pulse Rate [Pulse Oximeter] 84 80 Respiratory Rate 22 20 Blood Pressure [Le ft Arm] 112/84 Blood Pressure [Ri ght Arm] Pulse Oximetry 95 Oxygen Delivery Pr thod Room Air 10/28/24 23:30 10/29/24 00:02 10/29/24 00:04 Temperature 97.3 F L Pulse Rate 89 Pulse Rate [Bilate ral Radial] Pulse Rate [Pulse Oximeter] 80 Respiratory Rate 20 20 Blood Pressure [Le ft Arm] 108/84 Blood Pressure [Ri ght Arm] Pulse Oximetry 91 91 [facility] 10/29/24 03:17 10/29/24 07:00 10/29/24 07:00 Temperature 97.2 F L Pulse Rate 94 Pulse Rate [Bilate ral Radial] Pulse Rate [Pulse Oximeter] 71 Respiratory Rate 24 18 Blood Pressure [Le ft Arm] Blood Pressure [Ri ght Arm] 127/84 Pulse Oximetry 92 94 Oxygen Delivery Me thod Room Air Room Air 10/29/24 07:30 10/29/24 07:30 10/29/24 11:00 Temperature 97.6 F 98.2 F Pulse Rate Pulse Rate [Bilate ral Radial] Pulse Rate [Pulse Oximeter] 94 94 79 Respiratory Rate 18 18 18 Blood Pressure [Le ft Arm] Blood Pressure [Ri ght Arm] 137/85 99/69 Pulse Oximetry 94 95 Oxygen Delivery Me thod Room Air Room Air DS: Data Data Completed and Pending Labs on day of discharge: Labs from last 24 hours 10/29/24 05:42 Sodium 135 Potassium 4.1 Chloride 102 Carbon Dioxide 24 Anion Gap 9 BUN 19 Creatinine 0.8 Estimated Creat Clear 70.06 Estimated GFR 92 Glucose 117 H Calcium 9.5 Imaging Chest x-ray: Attestation: I have reviewed the pertinent imaging results. Radiologist's impression: FINDINGS: The sensitivity and specificity of the exam are severely limited by the patient`s body habitus. Mediastinum: Previous median sternotomy and coronary artery bypass grafting (CABG) noted. Moderate cardiomegaly is noted. Lung: Small lung volumes are present with mild pulmonary vascular congestion. No sign of pleural effusion seen. No pneumothorax is identified. Bone and Soft tissue: Unremarkable for age. IMPRESSIONS: 1. Small lung volumes are present with mild pulmonary vascular congestion. 2. Moderate cardiomegaly is noted. Additional Comments Additional comments: Echocardiogram findings as above Discharge Plan Discharge Disposition: Home, Self-Care Date of Admission: 10/27/24 20:08 Attending Provider on Discharge: Tali Baldwin Primary Care Provider: Erica Madison Condition: Improved Anticipated Discharge Date/Time: 10/29/24 11:56 Discharge Medications: New Eliquis 5 mg Tablet 5 mg PO BID Qty: 60 0RF furosemide 40 mg tablet 40 mg PO QAM Qty: 10 0RF metoprolol succinate 25 mg Tablet Extended Release 24 Hr 25 mg PO DAILY Qty: 30 0RF Continued acetaminophen 650 mg/20.3 mL solution 650 mg PO Q6H PRN nitroglycerin 0.4 mg tablet, sublingual 0.4 mg sublingual Q5M PRN cholecalciferol (vitamin D3) [Vitamin D3] 25 mcg (1,000 unit) capsule 25 mcg PO DAILY atorvastatin 40 mg tablet 40 mg PO HS Held lisinopril 2.5 mg tablet 2.5 mg PO DAILY Hold Instructions: Resume on 11/12/24. HOLD UNTIL OUTPATIENT FOLLOW UP WITH CARDIOLOGY Discontinued metoprolol tartrate 25 mg tablet 25 mg PO HS aspirin 81 mg tablet,delayed release (DR/EC) 81 mg PO DAILY clopidogrel [Plavix] 75 mg tablet 75 mg PO DAILY Discharge Orders: Discharge Order (Routine); Ordered 10/29/24 Ordered By: Tali Baldwin Patient Education: Metoprolol (By mouth), Furosemide (By mouth), Apixaban (By mouth), Heart Failure (DC), A-fib (Atrial Fibrillation) (DC) Additional Instructions: YOU WILL CONTINUE TO TAKE LASIX EVERY MORNING FOR THE NEXT 10 DAYS OR UNTIL YOU HAVE SEEN CARDIOLOGY HOLD YOUR LISINOPRIL FOR NOW - WE ADDED LASIX YOU WILL NEED TO TAKE METOPROLOL ER AND ELIQUIS FOR ATRIAL FIBRILLATION STOP TAKING YOUR ASPIRIN AND PLAVIX WEIGH YOURSELF EVERY MORNING AT THE SAME TIME AND RECORD IT. TAKE THIS WITH YOU TO CARDIOLOGY A ZIOPATCH HAS BEEN PLACED. RETURN THIS INSTRUCTED YOUR ECHOCARDIOGRAM SHOWS THAT YOUR HEART FAILURE HAS WORSENED (WHICH CAN HAPPEN TO A DEGREE WITH NEW ONSET ATRIAL FIBRILLATION). YOU WILL NEED CLOSE OUTPATIENT FOLLOW UP WITH CARDIOLOGY TO ADDRESS ONGOING MANAGEMENT Activity Level: Activity as Tolerated, No strenuous activity and Light activity Discharge Diet: Heart Healthy (2 gm sodium, low fat) Follow Up Appointments: Basil Martinez [Staff Physician, Cardiology] - 11/02/24 11:30 am Referral Note: [facility] [address] [place] [address] Erica Madison MD [Primary Care Provider, Family Practice] - 11/02/24 7:20 am Forms: [employer] Info Instructions
--- NOTE | 2024-10-29 15:03 | PC.NURSE ---
Discharge: Patient pleasant and cooperative, A&O. VSS, afebrile. SpO2 maintained above 90% on RA. Denies SOB/chest pain this shift. Ambulates independently in room.
== END 2024-10-29 13:30 | disposition home or self-care (01) | DRG 308 ==
LOC: ED 18:27 → MEDSURG 18:52
PROVIDERS: Admitting Provider Family Medicine; Emergency Provider Family Medicine; PCP Family Medicine; Visit Provider Family Medicine
DX: I48.91 Unspecified atrial fibrillation (principal); I50.33 Acute on chronic diastolic (congestive) heart failure; I24.89 Other forms of acute ischemic heart disease; I11.0 Hypertensive heart disease with heart failure; G47.30 Sleep apnea, unspecified; I05.9 Rheumatic mitral valve disease, unspecified; I25.10 Atherosclerotic heart disease of native coronary artery without angina pectoris; I25.83 Coronary atherosclerosis due to lipid rich plaque; Z95.1 Presence of aortocoronary bypass graft; Z95.2 Presence of prosthetic heart valve; Z79.01 Long term (current) use of anticoagulants; E66.9 Obesity, unspecified; Z68.38 Body mass index [BMI] 38.0-38.9, adult; Z95.5 Presence of coronary angioplasty implant and graft; Z79.82 Long term (current) use of aspirin; E78.5 Hyperlipidemia, unspecified; Z87.891 Personal history of nicotine dependence
CPT/HCPCS: 36415; 51798; 71045; 80048; 80053; 82077; 82803; 83605; 83735; 83880; 84443; 84484; 85025; 85610; 85730; 86140; 93005; 93246; 93306; 94761; 99285; A9270; J1938; J2270; Q9957

== ENCOUNTER 2024-12-05 20:57 | Outpatient (CLI) | payer MEDICARE, SELFPAY | END 2024-12-05 20:58 | disposition home or self-care (01) | LOC: SLEEP 20:58 | PROVIDERS: PCP Family Medicine; Visit Provider Internal Medicine | DX: G47.33 Obstructive sleep apnea (adult) (pediatric) (principal); R09.02 Hypoxemia | CPT/HCPCS: 95811 ==